=== PATIENT | female | born 1980 | race Caucasian/White ===

== ENCOUNTER 2020-10-24 15:43 | Emergency (ER) | payer OTHER, SELFPAY ==
[2020-10-24 16:06] VITALS: BP 122/70; PULSE 95; RESP 16; TEMP 36.2; O2SAT 98; BMI 27.4
--- NOTE | 2020-10-24 16:44 | ED.GENADULT ---
HPI - General Adult General Chief complaint: General Medical Stated complaint: STD CHECK Time Seen by Provider: 10/24/20 16:44 History of Present Illness HPI narrative: Patient complains of STD exposure, her boyfriend has gonorrhea and has had a discharge and now she is worried she has it and she is also complaining of vaginal discharge with no pelvic pain no abdominal pain no fever Related Data Previous Rx's Medication Instructions Recorded doxycycline hyclate 100 mg capsule 100 mg PO BID 7 Days #14 cap 10/24/20 metronidazole 500 mg tablet 500 mg PO Q12H 7 Days #14 tab 10/24/20 (Flagyl) Allergies Allergy/AdvReac Type Severity Reaction Status Date / Time No Known Allergies Allergy Unverified 11/21/19 16:25 Review of Systems Review of Systems: Positive for STDs exposure and vaginal discharge Negatives are no fever no chills no dizziness no weakness no headache no neck pain no chest pain no shortness of breath no abdominal pain no pelvic pain no regular vaginal bleeding no dysuria no frequency no skin rash no lesions Yes all other systems are reviewed and are negative PMFSH Past Medical History Source: nursing notes reviewed Social History Social History Advance Directives: No Advance Directives Information Provided: No Physical Exam Vital Signs: Vital Signs: Last Vital Signs Temp 97.1 F 10/24/20 16:06 Pulse 95 10/24/20 16:06 Resp 16 10/24/20 16:06 BP 122/70 10/24/20 16:06 Pulse Ox 98 10/24/20 16:06 Body Mass Index 27.4 General appearance no acute distress Head is normocephalic atraumatic Neck is supple Respiratory no distress Abdomen soft nontender Back no CVA tenderness Extremities full range of motion x4 Course Course Course Narrative: Patient is treated for possible gonorrhea or chlamydia, is advised to follow with [facility] for further examination She self swab bacterial vaginosis and was tested for gonorrhea chlamydia and well-appearing patient was discharged Medical Decision Making Lab Data Labs: Lab Results 10/24/20 10/24/20 Range/Units 17:52 17:52 Jessie species DNA Negative (Negative) Chlam trachomat DNA PCR NOT DETECTED (Not Detect.) Gardnerella DNA Probe Positive A (Negative) N.gonorrhoeae DNA (PCR) DETECTED A (Not Detect.) Trichomonas DNA Probe Negative (Negative) Discharge Plan Discharge Clinical Impression: Gonorrhea Patient Disposition: Home, Self-Care Additional Instructions: We are treating for both gonorrhea and chlamydia We gave a shot of Rocephin for gonorrhea in the emergency department We are also treating with doxycycline for chlamydia and Flagyl for probable bacterial vaginosis [facility] and to confirm treatment has work No sexual activity until partner and herself are both treated and confirmed cured Prescriptions: New metronidazole [Flagyl] 500 mg tablet 500 mg PO Q12H 7 Days Qty: 14 RF: 0 doxycycline hyclate 100 mg capsule 100 mg PO BID 7 Days Qty: 14 RF: 0 Interventions: ED Discharge Assessment Last Done: 10/24/20 18:06 Discharge Date/Time: 10/24/20 18:07
[2020-10-24] MEDS: Azithromycin 500 MG TABLET 1000 MG PO (17:42)
[2020-10-24] MEDS: cefTRIAXone sodium 500 MG, Lidocaine HCl 1 % MPF 1 ML IM (17:42)
[2020-10-25 03:07] LABS: CT PCR NOT DETECTED (Not Detect.); NG PCR DETECTED (Not Detect.)
[2020-10-25 11:59] LABS: BV Int Neg Control Negative (Negative); BV Int Pos Control Positive (Positive)
== END 2020-10-24 18:07 | disposition home or self-care (01) ==
PROVIDERS: Physician Assistant Medical; Emergency Provider Internal Medicine
DX: A54.02 Gonococcal vulvovaginitis, unspecified (principal); Z11.3 Encounter for screening for infections with a predominantly sexual mode of transmission
CPT/HCPCS: 87480; 87491; 87510; 87591; 87660; 96372; 99283; 99284; J0696

== ENCOUNTER 2021-02-20 14:01 | Emergency (ER) | payer OTHER, SELFPAY | END 2021-02-20 14:41 | disposition left against medical advice (07) | PROVIDERS: Emergency Provider Emergency Medicine | DX: T50.901A Poisoning by unspecified drugs, medicaments and biological substances, accidental (unintentional), initial encounter (principal); Y92.9 Unspecified place or not applicable ==

== ENCOUNTER 2021-02-20 15:12 | Emergency (ER) | payer OTHER, SELFPAY | END 2021-02-20 16:14 | disposition left against medical advice (07) | LOC: HO.ED 16:09 | PROVIDERS: Emergency Provider Emergency Medicine | DX: R68.89 Other general symptoms and signs (principal) ==

== ENCOUNTER 2021-02-20 16:26 | Emergency (ER) | payer OTHER, SELFPAY ==
[2021-02-20 16:53] VITALS: BP 150/81; PULSE 68; RESP 18; O2SAT 100; BMI 30.6
--- NOTE | 2021-02-20 16:57 | ED.GENADULT ---
HPI - General Adult General Chief complaint: General Medical Stated complaint: Crisis Time Seen by Provider: 02/20/21 16:47 Source: EMS Mode of arrival: EMS Limitations: altered mental status History of Present Illness HPI narrative: Patient is brought to the emergency room by EMS. Per EMS report, seems that the patient was here in the emergency room earlier today. Patient was in the waiting room, acting erratic, trying to break into the ED, patient was combative, seems that security called PD. Prior toPD arriving, seems that the patient when out in the parking lot and threw herself in some puddles, then PD pick her up. For unclear reason, patient was sent back to the emergency room under a [employer] by police department. So far there is no report of any suicidal or homicidal ideation. Patient is awake but very somnolent, unable to give any history. Patient had fecal incontinence. Related Data Previous Rx's Medication Instructions Recorded doxycycline hyclate 100 mg capsule 100 mg PO BID 7 Days #14 cap 10/24/20 metronidazole 500 mg tablet 500 mg PO Q12H 7 Days #14 tab 10/24/20 (Flagyl) Allergies Allergy/AdvReac Type Severity Reaction Status Date / Time No Known Allergies Allergy Unverified 11/21/19 16:25 Review of Systems Review of Systems: Yes Unobtainable due to mental condition PMFSH Past Medical History Medical History Substance abuse Social History Social History Advance Directives: No Advance Directives Information Provided: No Physical Exam Vital Signs: Vital Signs: Last Vital Signs Temp 97.9 F 02/20/21 18:20 Pulse 68 02/20/21 16:53 Resp 18 02/20/21 16:53 BP 150/81 H 02/20/21 16:53 Pulse Ox 100 02/20/21 16:53 BMI result Body Mass Index 30.6 Const: Other: Appearance: No acute distress, somnolent, easily arousable, seems confused, states I have to pee Eyes: Pupils equal, round and reactive to light. ENT: Pharynx normal. Neck: Normal inspection. Neck supple. No lymph nodes noted. No crepitus CVS: Normal heart rate and rhythm. Pulses normal. Normal S1 and S2 Respiratory: No respiratory distress. Breath sounds normal. No Wheezing. No rales Abdomen: Soft and nontender. No rigidity. No distention. Skin: Skin warm and dry. Normal skin color. Normal skin turgor. Extremities: No lower extremity edema. No Lacerations. No Rash Neuro: Oriented X 3. No motor deficit. No sensory deficit. Moving all extermities. No slurred speech. Cranial nerves 2-12 grossly intact, patient able to walk, walk from her room to the bathroom Psych: Not answering questions, call, otherwise trying to be cooperative Course Course Course Narrative: Patient is still intoxicated, urinalysis pending. Vitals stable. Patient will stay in the ED and metabolize to [facility]. Physician observation started 17:19 0, patient is awake and alert and oriented x3. No acute distress. Patient is calm, cooperative, ambulatory with steady gait. Patient denies suicidal or homicidal ideation. Patient declined help from the care team/recovery coaches. Medical Decision Making Lab Data Labs: Lab Results 02/20/21 02/20/21 02/20/21 Range/Units 17:17 17:25 17:25 Urine Color YELLOW Urine Appearance CLOUDY Urine pH 6.0 (5.0-8.0) Ur Specific [place] 1.020 (1.005-1.025) Urine Protein NEG (NEG-TRACE) MG/DL Urine Glucose (UA) NEG (NEG) MG/DL Urine Ketones 15 (NEG) MG/DL Urine Blood TRACE (NEG) Urine Nitrite NEG (NEG) Ur Leukocyte Esterase NEG (NEG) Urine RBC 1-4 (0) /HPF Urine WBC 0-2 (0-4) /HPF Ur Squamous Epith Cells 1+ /LPF Urine Bacteria 1+ /LPF Urine Mucus TRACE /LPF Urine Test NEGATIVE (NEGATIVE) Urine Opiates Screen Not Detected (Not Detect) Urine Fentanyl Screen POSITIVE H (Not Detect) Ur Barbiturates Screen Not Detected (Not Detect) Ur Phencyclidine Scrn Not Detected (Not Detect) Ur Amphetamines Screen Not Detected (Not Detect) U Benzodiazepines Scrn Not Detected (Not Detect) Urine Cocaine Screen POSITIVE H (Not Detect) U Marijuana (THC) Screen Not Detected (Not Detect) Discharge Plan Discharge Clinical Impression: Polysubstance abuse Patient Disposition: Home, Self-Care Instructions: Polysubstance Abuse (ED) Additional Instructions: Please follow-up with your primary care physician tomorrow. If you have any worsening or new symptoms, please return to the emergency room or call 911 Prescriptions: No Action metronidazole [Flagyl] 500 mg tablet 500 mg PO Q12H 7 Days Qty: 14 RF: 0 doxycycline hyclate 100 mg capsule 100 mg PO BID 7 Days Qty: 14 RF: 0
--- NOTE | 2021-02-20 16:58 | PC.NURSE ---
Pt changed for stool incontinence upon arrival, belongings in decon, feels cool to touch, will obtain rectal temp
[2021-02-20 17:46] LABS: Appearance Urine CLOUDY; Color Urine YELLOW; Glucose Urine UA NEG (NEG); Leukocyte Esterase Urine NEG (NEG); Nitrite Urine NEG (NEG); UACC Culture Trigger NO; Urine Blood TRACE (NEG); Urine Ketones 15 MG/DL (NEG); Urine Protein NEG (NEG-TRACE)
[2021-02-20 17:49] LABS: Amphetamine Screen Urine Not Detected (Not Detect); Barbiturates, Urine Not Detected (Not Detect); Benzodiazepines Screen Urine Not Detected (Not Detect); Cannabinoid Screen Urine Not Detected (Not Detect); Cocaine Screen Urine POSITIVE (Not Detect); Fentanyl, urine POSITIVE (Not Detect); Opiate Screen Urine Not Detected (Not Detect); Phencyclidine Screen Urine Not Detected (Not Detect); UPreg QC Valid YES; Urine Pregnancy NEGATIVE (NEGATIVE)
[2021-02-20 18:01] LABS: WBC Urine 0-2 /HPF (0-4)
[2021-02-20 18:02] LABS: Bacteria Urine 1+ /LPF; Mucus Urine TRACE /LPF; Squamous Epithelial Cell Urine 1+ /LPF
[2021-02-20 18:20] VITALS: TEMP 36.6
--- NOTE | 2021-02-20 18:20 | PC.NURSE ---
Pt asleep, awakes easily to verbal stimuli, ambulatory to bathroom and able to follow simple commands. vss
--- NOTE | 2021-02-20 19:35 | PC.NURSE ---
PT DENIES SUICIDAL/HOMICIDAL IDEATION, PT UP AND AMBULATES AROUND ED WITH STEADY EVEN GAIT AND STATES IM VERY BUSY AND NEED TO GO HOME, YOU PEOPLE DON'T UNDERSTAND . PT SPEAKING IN FULL COMPLETE SENTENCES. MD AWARE AND PT AWAITING FOR D/C INSTRUCTIONS.
[2021-02-20 19:45] VITALS: BP 138/68; PULSE 68; RESP 16; O2SAT 98
== END 2021-02-20 19:47 | disposition home or self-care (01) ==
PROVIDERS: Emergency Provider Emergency Medicine
DX: F19.10 Other psychoactive substance abuse, uncomplicated (principal)
CPT/HCPCS: 80307; 81001; 81025; 99283; 99284

== ENCOUNTER 2022-02-26 08:54 | Emergency (ER) | payer OTHER, SELFPAY ==
[2022-02-26 08:58] VITALS: BP 128/64; PULSE 100; RESP 18; TEMP 36.8; O2SAT 100; BMI 30.2
--- NOTE | 2022-02-26 09:29 | PC.NURSE ---
Pt slumped over in seat in [facility] after ambulating to bathroom. Rousable to touch. RR 10, Skin p/w/d.
--- NOTE | 2022-02-26 09:48 | PC.NURSE ---
patient a/ox4 . pearrla , with bilateral periorbital edema noted . heart rate regular at 99 b eats per minute . breathing even and unlabored . lungs clear throughout . bilateral various rashes and and scratches and scabs noted from heroine use as [id number] by patient in arms . bilateral below the knees have various rashes and scratches from irritation associated from reaction also various scabs in lower extremities from popping and heroine use . abdomen is soft , positive bowel sounds . patient is aware of plan of care .
--- NOTE | 2022-02-26 09:48 | ED.ALLEREA ---
HPI - Allergic Reaction General Chief complaint: Allergic Reaction Stated complaint: facial swelling Time Seen by Provider: 02/26/22 09:33 Source: patient Mode of arrival: ambulatory Limitations: no limitations History of Present Illness HPI narrative: 41-year-old female with a history of polysubstance use, mood disorder, ADHD presents with complaints of itching rash all over her body with some swelling to her face for the last few days. Patient unaware of any new medications, products, detergents, foods. Patient reports no cough, difficulty breathing, difficulty swallowing, abdominal pain, vomiting or diarrhea. Patient is currently using IV heroin daily. She also skin pops. she is currently in a program. She is not interested in any additional substance related resources Related Data Previous Rx's Medication Instructions Recorded doxycycline hyclate 100 mg capsule 100 mg PO BID 7 days #14 caps 10/24/20 metronidazole 500 mg tablet 500 mg PO Q12H 7 days #14 tabs 10/24/20 (Flagyl) hydrocortisone 2.5 % topical 1 appl topical TID PRN itching 02/26/22 ointment #28.35 grams hydroxyzine HCl 25 mg tablet 25 mg PO TID PRN itching #20 tabs 02/26/22 prednisone 20 mg tablet 60 mg PO DAILY #12 tabs 02/26/22 Allergies Allergy/AdvReac Type Severity Reaction Status Date / Time No Known Allergies Allergy Unverified 11/21/19 16:25 Review of Systems Review of Systems: Yes all other systems are reviewed and are negative Constitutional: Constitutional: Reports no additional constitutional complaints, Denies body ache(s), Denies chills, Denies fever(s), Denies headache(s) and Denies weakness Eyes: Eyes: Reports no additional eye complaints and Denies change in vision ENT: Reports system reviewed and no additional complaints, except as documented, Denies dizziness, Denies headache(s), Denies nasal congestion, Denies nasal discharge and Denies neck pain Cardiovascular: Cardiovascular: Reports no additional cardiovascular complaints, Denies chest pain, Denies leg edema and Denies dyspnea Respiratory: Respiratory: Reports no additional respiratory complaints, Denies cough and Denies dyspnea Gastrointestinal: Gastrointestinal: Reports no additional gastrointestinal complaints, Denies abdominal pain, Denies diarrhea, Denies nausea and Denies vomiting Genitourinary: Genitourinary: Reports no additional female genitourinary complaints and Denies urinary incontinence Musculoskeletal: Musculoskeletal: Reports no additional musculoskeletal complaints, Denies back pain, Denies arthralgias, Denies joint swelling, Denies neck pain, Denies numbness and Denies tingling Integumentary/Breasts: Skin/Breast: Reports system reviewed and no additional complaints, except as docu and Reports rash Neurologic: Reports system reviewed and no additional complaints, except as documented, Denies dizziness, Denies headache(s), Denies numbness, Denies tingling and Denies weakness PMFSH Past Medical History Attestation statement: The following information was validated with the patient. Source: old records reviewed and nursing notes reviewed Medical History Substance abuse Social History Social History Smoked in Last 30 Days: Yes Substance Use Type: Heroin Advance Directives: No Advance Directives Information Provided: Yes Patient : No Physical Exam ED Vital Signs: Vital Signs - 24 hr 02/26/22 08:58 Temperature 98.2 F Pulse Rate 100 Respiratory Rate 18 Blood Pressure 128/64 Pulse Oximetry 100 Oxygen Delivery Method Room Air BMI result Body Mass Index 30.2 Const General: cooperative, healthy appearing, comfortable and no acute distress Orientation/consciousness: patient oriented x3 Limitations: no limitations HENMT Other: there is slight bilateral periorbital swelling. There is no swelling noted to the tongue, lips or mouth. The uvula is midline. No upper airway stridor. Patient is tolerating secretions with no difficulty. Head: Yes normal to inspection Ears: hearing grossly normal bilaterally and TM's normal bilaterally General nose exam: Normal external nose present Mouth: Normal oral and palatal mucosa present, lip normal and tongue normal Throat: Yes posterior oropharynx normal, Yes tonsils normal and Yes uvula midline Eyes Pupils: Equal, round and reactive pupils present EOM: EOMs intact bilaterally Neck Neck: Yes normal visual inspection, Yes full ROM, Yes no lymphadenopathy and Yes no meningeal signs Chest Chest palpation & inspection: normal inspection of the chest Resp Effort & Inspection: normal respiratory effort Auscultation: clear to auscultation bilaterally Cardio Rate: regular rate Rhythm: regular rhythm Peripheral pulses: Peripheral pulses 2+ throughout Back/Spine/Pelvis Thoracic/Lumbar Spine: thoracic and lumbar spine normal to inspection Skin Other: There is a slight urticarial rash noted over the lower and upper extremities. There is also various abrasions noted in linear fashion over the upper extremities. Over the lower legs there are multiple lesions with central areas of crusting and scabbing which patient remarks are from skin popping Neuro General: patient oriented x3, moves all extremities and no meningeal signs Cranial nerves: Yes Equal, round and reactive pupils present Cognition (Neuro): normal cognition Gait exam (Neuro): Normal gait present Medical Decision Making Medical Decision Making MDM Narrative: this is a 41-year-old female who presents with several days of itching rash and some facial swelling with no known exposure. exam is consistent with generalized allergic reaction. no airway involvement or angioedema. slight periorbital swelling. EOM is intact. PERRLA. Patient has no for mouth, lip, tongue swelling or difficulties with airway. No signs of superimposed cellulitis Patient given prednisone while in the emergency room as well as hydroxyzine as her biggest complaint is itching. will send home with prednisone for several days, hydroxyzine p.r.n. and hydrocortisone cream. Patient offered substance related resources but she declined these. Differential Diagnosis Differential Diagnoses: The differential diagnosis associated with the presentation includes Generalized allergic reaction, superimposed cellulitis Admission/Observation no airway involvement to suggest need for IV medications, additional resources and/or possible admission Social Determinants polysubstance abuse including IV heroin. states currently in a program. Denies additional need for resources. Patient reports she is able to get to the pharmacy to bulk picker her medications. Discharge Plan Discharge Clinical Impression: Allergic reaction Patient Disposition: Home, Self-Care Instructions: General Allergic Reaction (ED) Additional Instructions: start prednisone tomorrow Use the hydroxyzine for itching as needed and you may apply the topical cream to your body but do not apply it to your face tried be mindful of any new medications or products that you might be using may be triggering these symptoms. Try to use sensitive soaps and Free and Clear laundry detergents for the next few days return for worsening symptoms Prescriptions: New prednisone 20 mg tablet 60 mg PO DAILY Qty: 12 0RF hydroxyzine HCl 25 mg tablet 25 mg PO TID PRN (Reason: itching) Qty: 20 0RF hydrocortisone 2.5 % ointment 1 appl topical TID PRN (Reason: itching) Qty: 28.35 0RF No Action metronidazole [Flagyl] 500 mg tablet 500 mg PO Q12H 7 Days Qty: 14 0RF doxycycline hyclate 100 mg capsule 100 mg PO BID 7 Days Qty: 14 0RF Referrals: Physician,Unknown J [Primary Care Provider] - 1 week
[2022-02-26 10:17] VITALS: BP 128/78; PULSE 99; RESP 18; TEMP 36.7; O2SAT 98
--- NOTE | 2022-02-26 10:18 | PC.NURSE ---
Patient a/ox4 . VSS . Went over discharge instructions as ordered by provider . patient to follow up with primary care . patient to return to Ed if symptoms worsen . no questions at this time .
== END 2022-02-26 10:20 | disposition home or self-care (01) ==
PROVIDERS: Emergency Provider Student in an Organized Health Care Education/Training Program
DX: T78.40XA Allergy, unspecified, initial encounter (principal); R21 Rash and other nonspecific skin eruption; X58.XXXA Exposure to other specified factors, initial encounter; F19.10 Other psychoactive substance abuse, uncomplicated
CPT/HCPCS: 99283; 99284

== ENCOUNTER 2022-05-25 11:29 | Emergency (ER) | payer OTHER, SELFPAY ==
[2022-05-25 11:38] VITALS: BP 119/75; PULSE 80; RESP 16; TEMP 36.6; O2SAT 97; BMI 28.3
--- NOTE | 2022-05-25 11:39 | ED.GENADULT ---
HPI - General Adult General Chief complaint: Skin/Abscess/Foreign Body Stated complaint: skin flesh wound Related Data Previous Rx's Medication Instructions Recorded doxycycline hyclate 100 mg capsule 100 mg PO BID 7 days #14 caps 10/24/20 metronidazole 500 mg tablet 500 mg PO Q12H 7 days #14 tabs 10/24/20 (Flagyl) hydrocortisone 2.5 % topical 1 appl topical TID PRN itching 02/26/22 ointment #28.35 grams hydroxyzine HCl 25 mg tablet 25 mg PO TID PRN itching #20 tabs 02/26/22 prednisone 20 mg tablet 60 mg PO DAILY #12 tabs 02/26/22 Allergies Allergy/AdvReac Type Severity Reaction Status Date / Time ziprasidone [From Geodon] AdvReac Unknown Verified 05/25/22 11:37 PMFSH Past Medical History Medical History Substance abuse Social History Social History Substance Use Type: Heroin Advance Directives: No Physical Exam ED Vital Signs: BMI result Body Mass Index 28.3 Course Course Course Narrative: 41 year old female presents for evaluation on healing wounds to arms and legs. Plan for labs and inflammatory markers. Discharge Plan Discharge Clinical Impression: Wounds, multiple open, arm Patient Disposition: Elopement Prescriptions: No Action metronidazole [Flagyl] 500 mg tablet 500 mg PO Q12H 7 Days Qty: 14 0RF doxycycline hyclate 100 mg capsule 100 mg PO BID 7 Days Qty: 14 0RF prednisone 20 mg tablet 60 mg PO DAILY Qty: 12 0RF hydroxyzine HCl 25 mg tablet 25 mg PO TID PRN (Reason: itching) Qty: 20 0RF hydrocortisone 2.5 % ointment 1 appl topical TID PRN (Reason: itching) Qty: 28.35 0RF Interventions: ED Discharge Assessment Last Done: 05/25/22 15:21 Discharge Date/Time: 05/25/22 15:21
== END 2022-05-25 15:21 | disposition left against medical advice (07) ==
PROVIDERS: Emergency Provider Emergency Medicine
DX: S81.802D Unspecified open wound, left lower leg, subsequent encounter (principal); S81.801D Unspecified open wound, right lower leg, subsequent encounter; S41.102D Unspecified open wound of left upper arm, subsequent encounter; S41.101D Unspecified open wound of right upper arm, subsequent encounter; X58.XXXD Exposure to other specified factors, subsequent encounter; F19.10 Other psychoactive substance abuse, uncomplicated
CPT/HCPCS: 99281; 99282

== ENCOUNTER 2022-05-27 05:51 | Emergency (ER) | payer OTHER, SELFPAY | END 2022-05-27 06:30 | disposition left against medical advice (07) | PROVIDERS: Emergency Provider Emergency Medicine | DX: R21 Rash and other nonspecific skin eruption (principal) ==

== ENCOUNTER 2023-07-08 18:45 | Emergency (ER) | payer OTHER, SELFPAY ==
--- NOTE | 2023-07-08 20:15 | PC.NURSE ---
Pt checked in as a patient at 1845. She was the only person in the [facility] at this time, there was no wait to be triaged. After checking in, she left the ED and did not return.
== END 2023-07-08 20:00 | disposition left against medical advice (07) ==
LOC: HO.ED 20:00
PROVIDERS: Emergency Provider Emergency Medicine
DX: Z53.21 Procedure and treatment not carried out due to patient leaving prior to being seen by health care provider (principal); N39.0 Urinary tract infection, site not specified

== ENCOUNTER 2023-08-06 22:05 | Emergency (ER) | payer OTHER, SELFPAY | END 2023-08-06 22:58 | disposition left against medical advice (07) | LOC: HO.ED 22:58 | PROVIDERS: Emergency Provider Emergency Medicine | DX: Z53.21 Procedure and treatment not carried out due to patient leaving prior to being seen by health care provider (principal) ==

== ENCOUNTER 2023-08-14 12:37 | Emergency (ER) | payer OTHER, SELFPAY | END 2023-08-14 14:57 | disposition left against medical advice (07) | PROVIDERS: Emergency Provider Emergency Medicine | DX: Z53.21 Procedure and treatment not carried out due to patient leaving prior to being seen by health care provider (principal); R21 Rash and other nonspecific skin eruption ==

== ENCOUNTER 2023-08-15 07:54 | Emergency (ER) | payer OTHER, SELFPAY ==
[2023-08-15 08:11] VITALS: BP 115/77; PULSE 87; RESP 18; TEMP 36.7; O2SAT 98; BMI 30.3
--- NOTE | 2023-08-15 08:38 | ED.GENADULT ---
HPI - General Adult General Chief complaint: General Medical Stated complaint: skin infection Time Seen by Provider: 08/15/23 08:38 Source: patient Mode of arrival: ambulatory Limitations: no limitations History of Present Illness ED Provider: Charlotte Livingston PA-C HPI narrative: 41-year-old female with a history of polysubstance use on methadone, continuing to use IV drugs, hx mood disorder, ADHD who presents to the ER for evaluation of nonhealing wounds on the bilateral forearms, right greater than left for the last 4 months. Patient admits to injecting around the wounds with worsening symptoms. She states they are draining pus, are red and itchy. She denies any fever or chills. She is on methadone 65 mg a day at the clinic in [place] but continues to inject. She is refusing blood work and IV antibiotics today. complaint: Nonhealing, chronic, worsening wounds of the right upper extremity Onset (ago): month(s) Location: left, right and upper extremity Severity: moderate Quality: burning and other (Itching) Relieving factors: none Exacerbating factors: other (IV drug use) Treatments prior to arrival: none Related Data Previous Rx's ?Medication ?Instructions ?Recorded doxycycline hyclate 100 mg capsule 100 mg PO BID 7 days #14 caps 10/24/20 metronidazole 500 mg tablet 500 mg PO Q12H 7 days #14 tabs 10/24/20 (Flagyl) hydrocortisone 2.5 % topical 1 appl topical TID PRN itching 02/26/22 ointment #28.35 grams hydroxyzine HCl 25 mg tablet 25 mg PO TID PRN itching #20 tabs 02/26/22 prednisone 20 mg tablet 60 mg (3 x 20 mg) PO DAILY #12 tabs 02/26/22 cephalexin 500 mg capsule 500 mg PO Q6H 10 days #40 caps 08/15/23 doxycycline hyclate 100 mg tablet 100 mg PO BID #20 tabs 08/15/23 lidocaine 5 % topical ointment 1 appl topical BEDTIME #30 grams 08/15/23 Allergies Allergy/AdvReac Type Severity Reaction Status Date / Time ziprasidone [From Geodon] AdvReac Unknown Verified 08/15/23 08:12 Review of Systems Review of Systems: Yes all other systems are reviewed and are negative PMFSH Past Medical History Medical History Substance abuse Social History Social History (System 01/09/23 @ 15:09 by Aparna Johnson) Use of substances other than those prescribed or required for medical reasons: Yes Substance Use Type: Crack/Cocaine and Heroin Substance Use Frequency: Chronic Longstanding Last Used Substance: Just Prior to Admission Advance Directives: No Advance Directives Information Provided: No Physical Exam ED Vital Signs: Vital Signs - 24 hr 08/15/23 08:11 08/15/23 09:04 Temperature 98.0 F 98.0 F Pulse Rate 87 87 Respiratory Rate 18 18 Blood Pressure 115/77 115/77 Pulse Oximetry 98 98 Oxygen Delivery Method Room Air Room Air BMI result Body Mass Index 30.3 Appearance: Alert. Oriented X3. Disheveled, poorly kept HEENT: normal external inspection Neck: Normal inspection. Neck supple. CVS: Normal heart rate and rhythm. Pulses normal. Respiratory: No respiratory distress. Breath sounds normal. Skin: Skin warm and dry. There are multiple nonhealing, crater like wounds on the dorsal aspect of the right forearm, involving most of the forearm with surrounding erythema, warmth, induration. No fluctuance. Wounds are proximally 2-3 mm deep with yellow discoloration and surrounding erythema. Neurovascularly intact distally. Extremities: No lower extremity edema. No joint swelling. Neuro/psych: Oriented X 3. Grossly normal, nonfocal, tearful. Normal speech and cognition. Medical Decision Making Medical Decision Making MDM Narrative: 42-year-old female presenting to the ER for evaluation of acute on chronic wounds to her right upper extremities, right worried than left. She continues to inject drugs there. She is declining blood work today, IV antibiotics. She would like oral antibiotics and to be discharged. She understands the importance of not injecting into the wounds and that this is what is causing them. She is going to talk to her methadone clinic about dose adjustments. Patient is afebrile, not tachycardic. Will prescribe Keflex and doxycycline. Importance of compliance and abstinence from drugs discussed with the patient and she expressed understanding. Strict return precautions were discussed. Wound Clinic information provided. Stable for discharge Differential Diagnosis Differential Diagnoses: The differential diagnosis associated with the presentation includes Cellulitis, abscess, MRSA infection, xylazine wounds Admission/Observation Consideration of admission/observation: Escalation of care including admission/observation considered Patient declining External Record Review External record reviewed: Prior outpatient labs Tests considered The following testing was considered but not selected: Lab workup and blood cultures considered however patient is refusing at this time Prescription Management I considered prescription management with: Pain Medication and Antibiotic Social Determinants Patient?s care significantly limited by Social Determinants of Health including: Problems related to primary support group and Other Social Determinant of Health Critical Care Time Critical Care Time Critical Care Time: No Discharge Plan Discharge Clinical Impression: Wounds, multiple open, arm Qualifiers: Encounter type: initial encounter Laterality: right Qualified Code(s): S41.101A - Unspecified open wound of right upper arm, initial encounter Patient Disposition: Home, Self-Care Instructions: Wound Infection (DC), Acute Wounds (DC) Additional Instructions: Take the prescribed antibiotics as directed, complete the entire course and do not miss any doses These wounds will not get better unless you stop injecting drugs. Go to the Wound Clinic for further management, they can help monitor wound healing and give you other possible therapies. If you develop new or worsening symptoms call 911 or come back to the ER for further evaluation. Prescriptions: New doxycycline hyclate 100 mg tablet 100 mg PO BID Qty: 20 0RF cephalexin 500 mg capsule 500 mg PO Q6H 10 Days Qty: 40 0RF lidocaine 5 % ointment 1 appl topical BEDTIME Qty: 30 0RF No Action metronidazole [Flagyl] 500 mg tablet 500 mg PO Q12H 7 Days Qty: 14 0RF doxycycline hyclate 100 mg capsule 100 mg PO BID 7 Days Qty: 14 0RF prednisone 20 mg tablet 60 mg PO DAILY Qty: 12 0RF hydroxyzine HCl 25 mg tablet 25 mg PO TID PRN (Reason: itching) Qty: 20 0RF hydrocortisone 2.5 % ointment 1 appl topical TID PRN (Reason: itching) Qty: 28.35 0RF Referrals: [facility] [place] [facility] [place] [Provider Group] Interventions: ED Discharge Assessment Last Done: 08/15/23 09:04 Discharge Date/Time: 08/15/23 09:05 Print Language: Kinyarwanda
--- NOTE | 2023-08-15 09:01 | PC.NURSE ---
This RN went into patient room, pt has been refusing labs/IV, pt stating I just want PO antibiotics so I can go home, I have to much going on right now Pt has bilat forearm wounds, pt does admit to injecting into wounds. reporting pain/itching. Denies fevers. Provider made aware. Pt also has vape in room, secuirty made aware of smoking in room. Pt d/c with PO antibiotics and follow up with wound clinic.
[2023-08-15 09:04] VITALS: BP 115/77; PULSE 87; RESP 18; TEMP 36.7; O2SAT 98
== END 2023-08-15 09:05 | disposition home or self-care (01) ==
PROVIDERS: Emergency Provider Emergency Medicine; PCP Student in an Organized Health Care Education/Training Program
DX: S41.101A Unspecified open wound of right upper arm, initial encounter (principal); F14.10 Cocaine abuse, uncomplicated; F11.10 Opioid abuse, uncomplicated; Y28.9XXA Contact with unspecified sharp object, undetermined intent, initial encounter; Y93.9 Activity, unspecified; Y92.9 Unspecified place or not applicable; Y99.8 Other external cause status
CPT/HCPCS: 99283

== ENCOUNTER 2023-09-26 10:01 | Emergency (ER) | payer OTHER, SELFPAY ==
[2023-09-26 10:17] VITALS: BP 124/70; PULSE 89; RESP 18; TEMP 36.8; O2SAT 96; BMI 29.7
--- NOTE | 2023-09-26 12:58 | MHC.EDTECH ---
Difficult draw. Venipuncture x1 for 1st set of bc and labs. Counted 30 drops in each culture.
[2023-09-26 13:00] LABS: MANUAL DIFF FLAG NO
[2023-09-26 13:02] LABS: Basophils Percent Auto 0.4 % (0-2); Eosinophils Absolute Auto 0.2 X10*3/uL (0.0-0.4); Eosinophils Percent Auto 2.2 % (0-4); Hematocrit 32.6 % (37.0-47.0); Imm Gran Abs Auto 0.04 X10*3/uL (0.00-0.03); Imm Gran Pct Auto 0.6 % (0.0-0.4); Lymphocytes Absolute Auto 1.7 X10*3/uL (1.2-4.9); Lymphocytes Percent Auto 24.6 % (20-40); Mean Corpuscular HGB Conc 30.7 g/dl (31.0-35.0); Mean Corpuscular Hemoglobin 24.5 pg (27.0-33.0); Mean Corpuscular Volume 79.9 fL (80.0-98.0); Mean Platelet Volume 8.8 fL (9.4-12.3); Monocytes Absolute Auto 0.3 X10*3/uL (0.1-1.2); Monocytes Percent Auto 4.9 % (2-11); Neutrophils Absolute Auto 4.5 x10*3/uL (2.0-8.3); Neutrophils Percent Auto 67.3 % (45-73); Platelet Count 348 X10*3/uL (160-400); Red Blood Count 4.08 X10*6/uL (4.20-5.50); Red Cell Distribution Width 13.3 % (11.0-16.0); White Blood Count 6.8 X10*3/uL (4.8-10.8)
--- NOTE | 2023-09-26 13:08 | ED.SKABFB ---
HPI - Skin/Abscess/Foreign Bdy General Chief complaint: Skin/Abscess/Foreign Body Stated complaint: Cellulitis Time Seen by Provider: 09/26/23 13:05 History of Present Illness ED Provider: Dr. Andrew Anderson HPI narrative: 41-year-old female with a history of polysubstance use on methadone, continuing to use IV drugs, hx mood disorder, ADHD who presents to the ER for evaluation of nonhealing wounds on the bilateral forearms, right greater than left for the last 4-5 months. Patient was seen in the emergency department on 08/15/2019 for similar complaint. She was diagnosed with cellulitis in treated with 08/15/23 and she was treated with doxycycline and cephalexin times 10 days with no improvement of her symptoms. She continues to use injection drugs. She denied fever, chills, fatigue, chest pain or shortness of breath. Related Data Previous Rx's ?Medication ?Instructions ?Recorded doxycycline hyclate 100 mg capsule 100 mg PO BID 7 days #14 caps 10/24/20 metronidazole 500 mg tablet 500 mg PO Q12H 7 days #14 tabs 10/24/20 (Flagyl) hydrocortisone 2.5 % topical 1 appl topical TID PRN itching 02/26/22 ointment #28.35 grams hydroxyzine HCl 25 mg tablet 25 mg PO TID PRN itching #20 tabs 02/26/22 prednisone 20 mg tablet 60 mg (3 x 20 mg) PO DAILY #12 tabs 02/26/22 cephalexin 500 mg capsule 500 mg PO Q6H 10 days #40 caps 08/15/23 doxycycline hyclate 100 mg tablet 100 mg PO BID #20 tabs 08/15/23 lidocaine 5 % topical ointment 1 appl topical BEDTIME #30 grams 08/15/23 clindamycin HCl 300 mg capsule 600 mg (2 x 300 mg) PO Q8H 7 days 09/26/23 #42 caps Allergies Allergy/AdvReac Type Severity Reaction Status Date / Time ziprasidone [From Geodon] AdvReac Unknown Verified 09/26/23 10:21 Review of Systems Review of Systems: Yes all other systems are reviewed and are negative PMFSH Past Medical History Medical History Substance abuse Social History Social History (System 01/09/23 @ 15:09 by Aparna Johnson) Smoked in Last 30 Days: No Use of substances other than those prescribed or required for medical reasons: Yes Substance Use Type: Crack/Cocaine, Heroin and IV Drugs Substance Use Frequency: Chronic Longstanding Advance Directives: No Advance Directives Information Provided: Yes Do you have a plan to hurt others: No Plan Physical Exam Vital Signs: Vital Signs: Last Vital Signs Temp 97.7 F 09/26/23 13:09 Pulse 65 09/26/23 13:09 Resp 16 09/26/23 13:09 BP 99/65 09/26/23 13:09 Pulse Ox 100 09/26/23 13:09 O2 Del Method Room Air 09/26/23 13:09 BMI result Body Mass Index 29.7 Initial vital signs were normal Exam: General: Awake, alert in no distress Extremities: Soft tissue swelling of the right forearm with chronic, non healing skin ulcer with surrounding erythema and increased warmth. Patient also has erythema and soft tissue swelling of her right hand. Patient has left arm revealed similar nonhealing skin ulcers to the proximal forearm with slight erythema with no increased warmth. Medical Decision Making Medical Decision Making MDM Narrative: 41-year-old female with a history of polysubstance use on methadone, continuing to use IV drugs, hx mood disorder, ADHD who presents to the ER for evaluation of nonhealing wounds on the bilateral forearms, right greater than left for the last 4-5 months. Patient was seen in the emergency department on 08/15/2019 for similar complaint and she was treated with doxycycline and cephalexin times 10 days with no improvement of her symptoms. She continues to use injection drugs. She denied fever, chills, fatigue, chest pain or shortness of breath. Vital signs were normal. Physical examination revealed chronic nonhealing ulcerative wounds to the right forearm and left forearm right greater than left with cellulitis of the right forearm. Differential diagnosis: ?Includes but is not limited to cellulitis, nonhealing wounds, Xylazine exposure, vascular compromise secondary to injection drug use Following evaluation was ordered: CBC, BMP, liver panel, lactic acid Course: 13:48 : My interpretation patient's laboratory evaluation is as follows: WBC was normal 6800. Microcytic anemia with an H&H of 32 and 10.0. Platelet count was normal 348,000. BMP and liver panel were normal. Lactic acid was normal at 1.3. The patient's findings are consistent with a nonhealing skin ulcer possibly secondary to Xylazine exposure which caused skin necrosis verses vascular compromise from repeated injection drug use. The patient does not want to be admitted at this time and wants to try another course of antibiotics. Therefore the patient was prescribed clindamycin 600 mg 3 times a day for 7 days. Patient will also be referred to the wound clinic. Patient was not interested in getting help with your injection drug use disorder. Admission/Observation Consideration of admission/observation: Escalation of care including admission/observation considered Lab Data [facility] Lab Attestation statement: I reviewed the patient's lab results. 09/26/23 12:53 09/26/23 12:53 Labs: Lab Results 09/26/23 09/26/23 Range/Units 12:53 12:54 WBC 6.8 (4.8-10.8) X10*3/uL RBC 4.08 L (4.20-5.50) X10*6/uL Hgb 10.0 L (12.0-16.0) g/dl Hct 32.6 L (37.0-47.0) % MCV 79.9 L (80.0-98.0) fL MCH 24.5 L (27.0-33.0) pg MCHC 30.7 L (31.0-35.0) g/dl RDW 13.3 (11.0-16.0) % Plt Count 348 (160-400) X10*3/uL MPV 8.8 L (9.4-12.3) fL Immature Gran % (Auto) 0.6 H (0.0-0.4) % Neut % (Auto) 67.3 (45-73) % Lymph % (Auto) 24.6 (20-40) % Titus % (Auto) 4.9 (2-11) % Eos % (Auto) 2.2 (0-4) % Baso % (Auto) 0.4 (0-2) % Lymph # (Auto) 1.7 (1.2-4.9) X10*3/uL Titus # (Auto) 0.3 (0.1-1.2) X10*3/uL Eos # (Auto) 0.2 (0.0-0.4) X10*3/uL Baso # (Auto) 0.0 (0.0-0.2) X10*3/uL Abs Immat Gran (auto) 0.04 H (0.00-0.03) X10*3/uL Absolute Neuts (auto) 4.5 (2.0-8.3) x10*3/uL Absolute Nucleated RBC 0.000 (0.0-0.012) X10*3/uL Nucleated RBC % (auto) 0.0 (0.0-0.2) /100WBC Sodium 138 (135-145) mmol/L Potassium 3.9 (3.3-5.1) mmol/L Chloride 103 (96-108) mmol/L Carbon Dioxide 27 (22-29) mmol/L Anion Gap 12 (12-20) BUN 10 (9-16) mg/dL Creatinine 0.89 (0.5-1.4) mg/dL Estim Creat Clear Calc 81.7 Estimated GFR > 60 Random Glucose 85 (60-115) mg/dL Lactic Acid 1.3 (0.5-2.0) mmol/L Calcium 9.3 (8.4-10.2) mg/dL Total Bilirubin 0.2 (0.0-1.0) mg/dL Direct Bilirubin < 0.2 (0.0-0.5) mg/dL AST 22 (5-31) U/L ALT 16 (0-31) U/L Alkaline Phosphatase 96 (39-117) U/L Total Protein 8.6 H (6.5-8.0) g/dL Albumin 3.5 (3.5-5.0) g/dL Prescription Management I considered prescription management with: Antibiotic Chronic Conditions Patient?s care impacted by: Other (Injection drug use) Discharge Plan Discharge Clinical Impression: Cellulitis of arm, left, Cellulitis of arm, right, Nonhealing nonsurgical wound limited to breakdown of skin Patient Disposition: Home, Self-Care Additional Instructions: Your skin wounds may have been caused by exposure to Xylazine which is a drug that is often mixed in with heroin and can cause ulcers of the skin. Take clindamycin 300 mg pills, 2 pills 3 times a day (every 6 hours while awake) for 7 days Apply heating pad on low to your skin to increase the blood flow which will help treat the infection Also try to keep your arms elevated to help the blood drain out of your arms which will also help the infection. Please call the wound care clinic to try to make a follow-up appointment for further evaluation of your nonhealing skin ulcers Follow-up with your doctor in 2 days. Please return to the emergency department if your symptoms get worse or if you develop any symptoms that are concerning to you. Prescriptions: New clindamycin HCl 300 mg capsule 600 mg PO Q8H 7 Days Qty: 42 0RF No Action metronidazole [Flagyl] 500 mg tablet 500 mg PO Q12H 7 Days Qty: 14 0RF doxycycline hyclate 100 mg capsule 100 mg PO BID 7 Days Qty: 14 0RF prednisone 20 mg tablet 60 mg PO DAILY Qty: 12 0RF hydroxyzine HCl 25 mg tablet 25 mg PO TID PRN (Reason: itching) Qty: 20 0RF hydrocortisone 2.5 % ointment 1 appl topical TID PRN (Reason: itching) Qty: 28.35 0RF doxycycline hyclate 100 mg tablet 100 mg PO BID Qty: 20 0RF cephalexin 500 mg capsule 500 mg PO Q6H 10 Days Qty: 40 0RF lidocaine 5 % ointment 1 appl topical BEDTIME Qty: 30 0RF Referrals: [facility] – [place] Wound Care Management [Provider Group] - 1 week (Nonhealing ulcers to forearm secondary to injection drug use, cellulitis) Print Language: Egyptian
[2023-09-26 13:09] VITALS: BP 99/65; PULSE 65; RESP 16; TEMP 36.5; O2SAT 100
[2023-09-26 13:20] LABS: Lactic Acid 1.3 mmol/L (0.5-2.0)
[2023-09-26 13:23] LABS: Alanine Aminotransferase 16 U/L (0-31); Albumin Level 3.5 g/dL (3.5-5.0); Alkaline Phosphatase 96 U/L (39-117); Anion Gap 12 (12-20); Aspartate Amino Transferase 22 U/L (5-31); Bilirubin Direct < 0.2 mg/dL (0.0-0.5); Bilirubin Total 0.2 mg/dL (0.0-1.0); Blood Urea Nitrogen 10 mg/dL (9-16); Calcium 9.3 mg/dL (8.4-10.2); Carbon Dioxide 27 mmol/L (22-29); Chloride 103 mmol/L (96-108); Creatinine Clr Calc Pharmacy 81.7; Estimated Glomerular Filt Rate > 60; Glucose Random 85 mg/dL (60-115); Potassium 3.9 mmol/L (3.3-5.1); Sodium 138 mmol/L (135-145); Total Protein 8.6 g/dL (6.5-8.0)
== END 2023-09-26 13:44 | disposition home or self-care (01) ==
PROVIDERS: Physician Assistant; Emergency Provider Emergency Medicine Emergency Medical Services
DX: L03.114 Cellulitis of left upper limb (principal); L03.113 Cellulitis of right upper limb; S51.801A Unspecified open wound of right forearm, initial encounter; S51.802A Unspecified open wound of left forearm, initial encounter; X58.XXXA Exposure to other specified factors, initial encounter; F19.10 Other psychoactive substance abuse, uncomplicated; F11.20 Opioid dependence, uncomplicated; Y93.89 Activity, other specified; Y92.9 Unspecified place or not applicable; Y99.9 Unspecified external cause status
CPT/HCPCS: 36415; 80048; 80076; 83605; 85025; 87040; 99283

== ENCOUNTER 2024-01-07 04:53 | Emergency (ER) | payer OTHER, SELFPAY ==
[2024-01-07 04:54] VITALS: BP 148/70; PULSE 104; RESP 18; TEMP 36.8; O2SAT 99; BMI 27.4
--- NOTE | 2024-01-07 05:02 | MHC.EDTECH ---
Patient refused blood drawn ,walk out and went out side ,[place] and elevator examiner Kelly aware .
--- NOTE | 2024-01-07 05:18 | ED_ITS ---
HPI - Wound/Laceration General Chief Complaint: Wound/Laceration Stated Complaint: open wound Time Seen by Provider: 01/07/24 05:11 Source: patient Mode of arrival: ambulatory Limitations: no limitations History of Present Illness ED Provider: jessi NEWBY narrative: Patient IVDA cocaine heroin user comes here was nonhealing wound of the right forearm which is going on for last several months no fever no significant increase in swelling no significant pus discharge has a chronic granulation tissues with purulent base patient does shoot in the same wound Related Data Previous Rx's ?Medication ?Instructions ?Recorded doxycycline hyclate 100 mg capsule 100 mg PO BID 7 days #14 caps 10/24/20 metronidazole 500 mg tablet 500 mg PO Q12H 7 days #14 tabs 10/24/20 (Flagyl) hydrocortisone 2.5 % topical 1 appl topical TID PRN itching 02/26/22 ointment #28.35 grams hydroxyzine HCl 25 mg tablet 25 mg PO TID PRN itching #20 tabs 02/26/22 prednisone 20 mg tablet 60 mg (3 x 20 mg) PO DAILY #12 tabs 02/26/22 cephalexin 500 mg capsule 500 mg PO Q6H 10 days #40 caps 08/15/23 doxycycline hyclate 100 mg tablet 100 mg PO BID #20 tabs 08/15/23 lidocaine 5 % topical ointment 1 appl topical BEDTIME #30 grams 08/15/23 clindamycin HCl 300 mg capsule 600 mg (2 x 300 mg) PO Q8H 7 days 09/26/23 #42 caps cephalexin 500 mg capsule 500 mg PO QID 10 days #40 caps 01/07/24 doxycycline hyclate 100 mg tablet 100 mg PO BID #20 tabs 01/07/24 Allergies Allergy/AdvReac Type Severity Reaction Status Date / Time ziprasidone [From Geodon] AdvReac Unknown Verified 01/07/24 04:56 Review of Systems Review of Systems: Yes all other systems are reviewed and are negative PMFSH Past Medical History Medical History Substance abuse Social History Social History Substance Use Type: Crack/Cocaine, Heroin and IV Drugs Advance Directives: No Advance Directives Information Provided: No Do you have a plan to hurt others: No Plan Physical Exam Vital Signs: Vital Signs: Last Vital Signs Temp 98.2 F 01/07/24 05:42 Pulse 104 H 01/07/24 05:42 Resp 18 01/07/24 05:42 BP 148/70 H 01/07/24 05:42 Pulse Ox 99 01/07/24 05:42 BMI result Body Mass Index 27.4 Appearance: Alert. Oriented X3. No acute distress. ENT: Pharynx normal. Oral Mucosa moist Neck: Normal inspection. Neck supple. CVS: Normal heart rate and rhythm. Pulses normal. Respiratory: No respiratory distress. Equal air entry bilateral, no wheezing/rales/rhonchi Skin: Skin warm and dry. Normal skin color. Normal skin turgor. Extremities: No lower extremity edema. Bilateral forearm with chronic looking wound with granulation tissues and purulent base with surrounding cellulitis Neuro: Oriented X 3. Medications Administered Discontinued Medications Generic Name Dose Route Start Last Admin Trade Name Freq PRN Reason Stop Dose Admin Cephalexin HCl 500 mg 01/07/24 05:18 01/07/24 05:35 Cephalexin 500 Mg Capsule PO 01/07/24 05:19 500 mg ONCE ONE Administration Doxycycline Monohydrate 100 mg 01/07/24 05:18 01/07/24 05:35 Doxycycline Monohydrate 100 Mg Capsule PO 01/07/24 05:19 100 mg ONCE ONE Administration Medical Decision Making Medical Decision Making [facility] Narrative: Patient with chronic forearm wounds secondary to use of IV drugs where she is shooting still will prescribe doxycycline cephalexin follow up with wound clinic Discharge Plan Discharge Clinical Impression: Wounds, multiple open, arm Qualifiers: Encounter type: initial encounter Laterality: right Qualified Code(s): S41.101A - Unspecified open wound of right upper arm, initial encounter Patient Disposition: Home, Self-Care Instructions: Wound Infection (ED) Additional Instructions: Local care as advised Take antibiotic as prescribed Prescriptions: New cephalexin 500 mg capsule 500 mg PO QID 10 Days Qty: 40 0RF doxycycline hyclate 100 mg tablet 100 mg PO BID Qty: 20 0RF No Action metronidazole [Flagyl] 500 mg tablet 500 mg PO Q12H 7 Days Qty: 14 0RF doxycycline hyclate 100 mg capsule 100 mg PO BID 7 Days Qty: 14 0RF prednisone 20 mg tablet 60 mg PO DAILY Qty: 12 0RF hydroxyzine HCl 25 mg tablet 25 mg PO TID PRN (Reason: itching) Qty: 20 0RF hydrocortisone 2.5 % ointment 1 appl topical TID PRN (Reason: itching) Qty: 28.35 0RF clindamycin HCl 300 mg capsule 600 mg PO Q8H 7 Days Qty: 42 0RF doxycycline hyclate 100 mg tablet 100 mg PO BID Qty: 20 0RF cephalexin 500 mg capsule 500 mg PO Q6H 10 Days Qty: 40 0RF lidocaine 5 % ointment 1 appl topical BEDTIME Qty: 30 0RF Interventions: ED Discharge Assessment Last Done: 01/07/24 05:42 Discharge Date/Time: 01/07/24 05:46 Print Language: Kiswahili
[2024-01-07] MEDS: Doxycycline Monohydrate 100 MG CAPSULE PO (05:35)
[2024-01-07] MEDS: cephALEXin 500 MG CAPSULE PO (05:35)
[2024-01-07 05:42] VITALS: BP 148/70; PULSE 104; RESP 18; TEMP 36.8; O2SAT 99
--- NOTE | 2024-01-07 05:42 | PC.NURSE ---
pt refused all blood labs
== END 2024-01-07 05:46 | disposition home or self-care (01) ==
PROVIDERS: Emergency Provider Internal Medicine
DX: S41.101A Unspecified open wound of right upper arm, initial encounter (principal); F11.10 Opioid abuse, uncomplicated; X58.XXXA Exposure to other specified factors, initial encounter; F14.10 Cocaine abuse, uncomplicated; Y93.89 Activity, other specified; Y92.89 Other specified places as the place of occurrence of the external cause; Y99.8 Other external cause status; Z79.899 Other long term (current) drug therapy; Z71.51 Drug abuse counseling and surveillance of drug abuser
CPT/HCPCS: 99282; 99283

== ENCOUNTER 2024-02-24 09:14 | Emergency (ER) | payer OTHER, SELFPAY ==
--- NOTE | ~2024-02-24 | US_ITS ---
EXAMINATION: US TRIPLEX LOWER EXTREMITY, LEFT CLINICAL INFORMATION: Swelling erythema COMPARISON: None available. TECHNIQUE: Color-flow triplex imaging with spectral analysis and compression Doppler were performed on the left lower extremity. FINDINGS: Respiratory variation, normal compression and augmented flow are noted throughout the left lower extremity. The visualized common femoral vein, superficial femoral vein, profunda femoral vein, popliteal vein and midcalf peroneal and posterior tibial venous segments show no evidence of deep venous thrombosis. Contralateral common femoral vein is patent. There is no Erwin's cyst. Multiple left groin lymph nodes are noted morphologically benign-appearing the largest measuring up to 1.1 cm in short axis. Soft tissue edema overlying the calf. US/US venous duplex LE LT IMPRESSION: 1. No evidence of deep venous thrombosis involving the left lower extremity. 2. Multiple left groin lymph nodes are noted morphologically benign-appearing the largest measuring up to 1.1 cm in short axis. 3. Soft tissue edema overlying the calf. Electronically signed by: Shayy Tomlin MD 02/24/2024 11:06 AM [facility]
[2024-02-24 09:21] VITALS: BP 110/39; PULSE 86; RESP 18; TEMP 36.5; O2SAT 100; BMI 27.7
--- NOTE | 2024-02-24 09:54 | PC.NURSE ---
patient with bilateral upper extremity nonhealing wounds, states she continues to use IV drugs via these sites. last used yesterday. left lower extremity swelling/redness, pulse found w/ doppler. painful to the touch. states this has been ongoing for two days. difficult stick, attempting to obtain lab work at this time, pending us.
--- NOTE | 2024-02-24 09:59 | ED.GENADULT ---
HPI - General Adult General Chief complaint: Extremity Injury, Lower Stated complaint: l leg swollen Time Seen by Provider: 02/24/24 09:45 Source: patient Mode of arrival: ambulatory Limitations: no limitations History of Present Illness ED Provider: robles NEWBY narrative: Patient is a 43-year-old female with history of polysubstance use, currently injecting into nonhealing open wounds on bilateral forearms, mood disorder, ADHD presenting to the emergency department with complaint of left lower leg pain and swelling for the past 2 days. Denies fevers, chills, body aches. Denies chest pain, palpitations, shortness of breath. Denies numbness or tingling to left lower leg or foot. Seen in this ED on 01/07/24 for forearm wounds and was discharged home on doxycycline and keflex, referral to wound clinic. Patient did not follow up with wound clinic. MD complaint: left leg pain Onset (ago): day(s) Location: left and lower extremity Severity: severe Quality: aching Pain Consistency: constant Related Data Previous Rx's ?Medication ?Instructions ?Recorded doxycycline hyclate 100 mg capsule 100 mg PO BID 7 days #14 caps 10/24/20 metronidazole 500 mg tablet 500 mg PO Q12H 7 days #14 tabs 10/24/20 (Flagyl) hydrocortisone 2.5 % topical 1 appl topical TID PRN itching 02/26/22 ointment #28.35 grams hydroxyzine HCl 25 mg tablet 25 mg PO TID PRN itching #20 tabs 02/26/22 prednisone 20 mg tablet 60 mg (3 x 20 mg) PO DAILY #12 tabs 02/26/22 cephalexin 500 mg capsule 500 mg PO Q6H 10 days #40 caps 08/15/23 doxycycline hyclate 100 mg tablet 100 mg PO BID #20 tabs 08/15/23 lidocaine 5 % topical ointment 1 appl topical BEDTIME #30 grams 08/15/23 clindamycin HCl 300 mg capsule 600 mg (2 x 300 mg) PO Q8H 7 days 09/26/23 #42 caps cephalexin 500 mg capsule 500 mg PO QID 10 days #40 caps 01/07/24 doxycycline hyclate 100 mg tablet 100 mg PO BID #20 tabs 01/07/24 cephalexin 500 mg capsule 500 mg PO QID #40 caps 02/24/24 doxycycline hyclate 100 mg capsule 100 mg PO BID #20 caps 02/24/24 Allergies Allergy/AdvReac Type Severity Reaction Status Date / Time ziprasidone [From Guichodon] AdvReac Unknown Verified 02/24/24 09:22 Review of Systems Review of Systems: As per HPI. Yes all other systems are reviewed and are negative Constitutional: Constitutional: Reports as per HPI [facility] Past Medical History Medical History Substance abuse Social History Social History Substance Use Type: Crack/Cocaine, Heroin and IV Drugs Advance Directives: No Advance Directives Information Provided: No Do you have a plan to hurt others: No Plan Physical Exam ED Vital Signs: Vital Signs - 24 hr 02/24/24 09:21 02/24/24 11:18 Temperature 97.7 F 98.0 F Pulse Rate 86 74 Respiratory Rate 18 16 Blood Pressure 110/39 L 99/51 L Pulse Oximetry 100 95 Oxygen Delivery Method Room Air Room Air BMI result Body Mass Index 27.7 Vital signs have been reviewed and appear to be correct. Blood pressure normal. Heart rate normal. Respiratory rate normal. Temperature normal. Oxygen saturation normal. Const General: no acute distress Orientation/consciousness: oriented to person, oriented to place, oriented to time and patient oriented x3 Limitations: no limitations [facility] Head: Yes normocephalic and Yes atraumatic Ears: external ears normal General nose exam: Normal external nose present Face and sinus: Yes face symmetric Mouth: oropharynx normal and moist mucous membranes Throat: Yes uvula midline Eyes Pupils: Equal, round and reactive pupils present Neck Neck: Yes normal visual inspection and Yes supple Resp Effort & Inspection: normal respiratory effort and able to speak in complete sentences Auscultation: clear to auscultation bilaterally Cardio Rate: regular rate Rhythm: regular rhythm Heart sounds: S1 normal heart sound present and S2 normal heart sound present GI Palpation (GI): Soft to palpation and nontender Auscultation: normoactive bowel sounds General: Yes no CVA tenderness Back/Spine/Pelvis Back: no CVA tenderness Skin General skin exam: elasticity normal and turgor normal Neuro General: oriented to person, oriented to place, oriented to time, patient oriented x3, moves all extremities, no focal motor deficits and CN's II-XI intact bilaterally Cranial nerves: Yes Equal, round and reactive pupils present Cognition (Neuro): normal cognition Extrem Other: large chronic appearing wounds to bilateral forearms with visible granulation tissue surrounded by erythema, scabbing, worse compared to photos on visit from 09/26/23, see photos General: Yes full ROM Left lower extremity: lower leg Details: erythema Location: of the distal lower leg Location: anteriorly, tenderness (diffuse), pitting edema Details: 2+ and warmth Location: of the distal lower leg, ankle Details: pitting edema Details: pitting and 2+, normal ROM (slightly decreased due to edema) and warmth Location: diffusely and foot Details: tenderness (diffuse) Location: of the dorsal foot, toes with normal ROM, warmth Location: of the dorsal foot, edema Location: diffusely Details: pitting and 2+ and vascular exam Details: dorsalis pedis pulse present (not palpable, auscultated via doppler); abnormal capillary refill (slightly delayed) Medications Administered Discontinued Medications Generic Name Dose Route Start Last Admin Trade Name Shannan PRN Reason Stop Dose Admin Hydromorphone HCl 1 mg 02/24/24 09:59 02/24/24 10:18 Hydromorphone Hcl 1 Mg/Ml Syringe IVPUSH 02/24/24 10:00 1 mg ONCE ONE Administration Protocol Medical Decision Making Medical Decision Making MDM Narrative: Patient is a 43-year-old female with history of polysubstance use, currently injecting into nonhealing open wounds on bilateral forearms, mood disorder, ADHD presenting to the emergency department with complaint of left lower leg pain and swelling for the past 2 days. On exam patient is awake, A+Ox3, VS WNL, afebrile, normal neurological exam without focal deficits, physical exam findings as above. Given reported symptoms and physical exam findings, initial differential includes but is not limited to DVT, cellulitis. Ultrasound notable for no DVT, but multiple left groin lymph nodes. My interpretation is in agreement with the radiologist's interpretation. Unable to obtain all labs as patient refusing additional attempts. Given extent of left lower leg cellulitis, as well as forearm wounds, hospital admission recommended, however, patient is refusing admission at this time. The patient has decided to leave against medical advice because she states that she has children to care for and no one else to watch them. They have normal mental status and adequate capacity to make medical decisions. The patient refuses hospital admission and wants to be discharged. The risks have been explained to the patient, including sepsis, worsening illness, chronic pain, permanent disability and . The benefits of admission have also been explained, including the availability and proximity of nurses, physicians, monitoring, diagnostic testing, treatment and IV antibiotics. The patient was able to understand and state the risks and benefits of hospital admission. This was witnessed by nurse Ashley Jade and me. They had the opportunity to ask questions about their medical condition. The patient was treated to the extent that they would allow and knows that they may return for care at any time. Patient referred to wound clinic for follow up and advised she can return to the ED at any time should she change her mind Will send prescriptions for doxycycline and keflex, refer to wound clinic. Patient verbalized understanding of and agreement with plan. Differential Diagnosis Differential Diagnoses: The differential diagnosis associated with the presentation includes As per [facility] Admission/Observation Consideration of admission/observation: Escalation of care including admission/observation considered Admission recommended, patient refused. Lab Data [facility] Lab Attestation statement: I reviewed the patient's lab results. As per [facility] 02/24/24 10:07 Labs: Lab Results 02/24/24 Range/Units 10:07 Sodium 134 L (135-145) mmol/L Potassium 3.5 (3.3-5.1) mmol/L Chloride 103 (96-108) mmol/L Carbon Dioxide 24 (22-29) mmol/L Anion Gap 11 L (12-20) BUN 16 (9-16) mg/dL Creatinine 0.79 (0.5-1.4) mg/dL Estim Creat Clear Calc 89.1 Estimated GFR > 60 Random Glucose 101 (60-115) mg/dL Calcium 8.8 (8.4-10.2) mg/dL Magnesium 2.1 (1.6-2.6) mg/dL Total Bilirubin 0.3 (0.0-1.0) mg/dL AST 39 H (5-31) U/L ALT 20 (0-31) U/L Alkaline Phosphatase 101 (39-117) U/L Total Protein 8.6 H (6.5-8.0) g/dL Albumin 3.3 L (3.5-5.0) g/dL Ethyl Alcohol < 10 mg/dL Independent Interpretation I performed an independent interpretation of an: Ultrasound Interpretation: No LLE DVT, multiple groin lymph nodes. Radiology Impression Discussion of test interpretation with radiology: I have reviewed the radiologist's reading. Radiologist Impression: XR/XR chest 2V IMPRESSION: 1. Chronic emphysematous changes. 2. Blunting of the bilateral costophrenic recesses, left greater right which may reflect trace pleural effusions versus scarring. 3. Slight patchy radiopacity involving the bilateral lung bases, right. Left which may reflect infectious/inflammatory etiology as opposed to chronic changes. 4. Biapical pleural-parenchymal scarring. External Record Review External record reviewed: Inpatient record, Office record and Outpatient record Prescription Management I considered prescription management with: Antibiotic Discharge Plan Discharge Clinical Impression: Cellulitis of left lower extremity Patient Disposition: Left Against Medical Advice Instructions: Cellulitis (DC) Additional Instructions: You were evaluated in the emergency department today for left lower leg pain and swelling. Your ultrasound did not show evidence of a blood clot. You have a significant skin infection, also known as cellulitis. It was recommended that you be admitted to the hospital for IV antibiotics which you refused. You are being prescribed antibiotics to take at home, complete the full courses as prescribed. You can return to the emergency department at any time if you should change your mind and we recommend that you do so. Return with fevers, increasing redness, swelling, new numbness/tingling or any other concerning symptoms. Prescriptions: New doxycycline hyclate 100 mg capsule 100 mg PO BID Qty: 20 0RF cephalexin 500 mg capsule 500 mg PO QID Qty: 40 0RF No Action metronidazole [Flagyl] 500 mg tablet 500 mg PO Q12H 7 Days Qty: 14 0RF doxycycline hyclate 100 mg capsule 100 mg PO BID 7 Days Qty: 14 0RF prednisone 20 mg tablet 60 mg PO DAILY Qty: 12 0RF hydroxyzine HCl 25 mg tablet 25 mg PO TID PRN (Reason: itching) Qty: 20 0RF hydrocortisone 2.5 % ointment 1 appl topical TID PRN (Reason: itching) Qty: 28.35 0RF clindamycin HCl 300 mg capsule 600 mg PO Q8H 7 Days Qty: 42 0RF doxycycline hyclate 100 mg tablet 100 mg PO BID Qty: 20 0RF cephalexin 500 mg capsule 500 mg PO Q6H 10 Days Qty: 40 0RF lidocaine 5 % ointment 1 appl topical BEDTIME Qty: 30 0RF cephalexin 500 mg capsule 500 mg PO QID 10 Days Qty: 40 0RF doxycycline hyclate 100 mg tablet 100 mg PO BID Qty: 20 0RF Referrals: [facility] – [place] Wound Care Management [Provider Group] Stand Alone Forms: Against Medical Advice Print Language: Croatian
--- NOTE | 2024-02-24 10:17 | MHC.EDTECH ---
Difficult draw. venipuncture x2. Only able to collect one set of blood cultures and one green gel. Patient refusing labs at this time. Ashley HERRON aware.
[2024-02-24] MEDS: HYDROmorphone HCl 1 MG/ML SYRINGE IVPUSH (10:18)
--- NOTE | 2024-02-24 10:29 | PC.NURSE ---
patient refusing further lab work/IV at this time. verbal okay from provider for IM pain medication injection. ultrasound at bedside.
[2024-02-24 10:30] LABS: Alanine Aminotransferase 20 U/L (0-31); Albumin Level 3.3 g/dL (3.5-5.0); Alkaline Phosphatase 101 U/L (39-117); Anion Gap 11 (12-20); Aspartate Amino Transferase 39 U/L (5-31); Bilirubin Total 0.3 mg/dL (0.0-1.0); Blood Urea Nitrogen 16 mg/dL (9-16); Calcium 8.8 mg/dL (8.4-10.2); Carbon Dioxide 24 mmol/L (22-29); Chloride 103 mmol/L (96-108); Creatinine Clr Calc Pharmacy 89.1; Estimated Glomerular Filt Rate > 60; Ethanol < 10 mg/dL; Glucose Random 101 mg/dL (60-115); Magnesium 2.1 mg/dL (1.6-2.6); Potassium 3.5 mmol/L (3.3-5.1); Sodium 134 mmol/L (135-145); Total Protein 8.6 g/dL (6.5-8.0)
[2024-02-24 11:18] VITALS: BP 99/51; PULSE 74; RESP 16; TEMP 36.7; O2SAT 95
[2024-02-24] MEDS: cephALEXin 500 MG CAPSULE PO (12:20)
[2024-02-24] MEDS: Doxycycline Monohydrate 100 MG CAPSULE PO (12:20)
--- NOTE | 2024-02-24 12:25 | PC.NURSE ---
patient educated on risks of leaving against medical advice, verbal understanding on this, follow up care, and medications. paperwork signed
[2024-02-24 12:26] VITALS: BP 99/51; PULSE 74; RESP 16; TEMP 36.7; O2SAT 95
== END 2024-02-24 12:26 | disposition left against medical advice (07) ==
PROVIDERS: Emergency Provider Emergency Medicine Emergency Medical Services
DX: L03.116 Cellulitis of left lower limb (principal); M79.662 Pain in left lower leg; R60.0 Localized edema; F19.10 Other psychoactive substance abuse, uncomplicated; Z53.29 Procedure and treatment not carried out because of patient's decision for other reasons
CPT/HCPCS: 36415; 80053; 80307; 83735; 87040; 93971; 96374; 99284; J1171

== ENCOUNTER 2024-03-29 10:00 | Emergency (ER) | payer OTHER, SELFPAY ==
[2024-03-29 10:59] VITALS: BP 99/48; PULSE 88; RESP 16; TEMP 36.9; O2SAT 99; BMI 26.9
--- NOTE | 2024-03-29 11:10 | ED.GENADULT ---
HPI - General Adult General Chief complaint: Skin/Abscess/Foreign Body Stated complaint: arm infection Time Seen by Provider: 03/29/24 12:44 Source: patient Mode of arrival: ambulatory Limitations: no limitations History of Present Illness ED Provider: Kim Aguero PA-C HPI narrative: Patient is a 43 year old assigned female at with a history of IVDU presenting to the emergency department today with a worsening left forearm wound. Patient states that she has been having issues with a left forearm wound that continues not to get better. Patient states that she does not want to have any lab work done or stay in the hospital. Patient states that she wants oral antibiotics and to go. Patient denies any dizziness, lightheadedness, abdominal pain, nausea, vomiting, fever, chills, blurry vision, double vision, loss of vision, chest pain, difficulty breathing, shortness of breath, back pain, night sweats, pain with urination, increased urinary frequency, increased urinary urgency, blood in her urine or stool, syncope or a near syncopal episode, recent trauma or falls, bowel incontinence, bladder incontinence, or any other complaints at this time. Relieving factors: none Exacerbating factors: none Associated symptoms: denies other symptoms Related Data Previous Rx's ?Medication ?Instructions ?Recorded doxycycline hyclate 100 mg capsule 100 mg PO BID 7 days #14 caps 10/24/20 metronidazole 500 mg tablet 500 mg PO Q12H 7 days #14 tabs 10/24/20 (Flagyl) hydrocortisone 2.5 % topical 1 appl topical TID PRN itching 02/26/22 ointment #28.35 grams hydroxyzine HCl 25 mg tablet 25 mg PO TID PRN itching #20 tabs 02/26/22 prednisone 20 mg tablet 60 mg (3 x 20 mg) PO DAILY #12 tabs 02/26/22 cephalexin 500 mg capsule 500 mg PO Q6H 10 days #40 caps 08/15/23 doxycycline hyclate 100 mg tablet 100 mg PO BID #20 tabs 08/15/23 lidocaine 5 % topical ointment 1 appl topical BEDTIME #30 grams 08/15/23 clindamycin HCl 300 mg capsule 600 mg (2 x 300 mg) PO Q8H 7 days 09/26/23 #42 caps cephalexin 500 mg capsule 500 mg PO QID 10 days #40 caps 01/07/24 doxycycline hyclate 100 mg tablet 100 mg PO BID #20 tabs 01/07/24 cephalexin 500 mg capsule 500 mg PO QID #40 caps 02/24/24 doxycycline hyclate 100 mg capsule 100 mg PO BID #20 caps 02/24/24 cephalexin 500 mg capsule 500 mg PO Q6H 7 days #28 caps 03/29/24 doxycycline hyclate 100 mg tablet 100 mg PO BID 7 days #14 tabs 03/29/24 Allergies Allergy/AdvReac Type Severity Reaction Status Date / [facility] AdvReac Unknown Verified 03/29/24 11:02 Review of Systems Constitutional: Constitutional: Reports no additional constitutional complaints, Denies chills, Denies fever(s) and Denies night sweats Eyes: Eyes: Reports no additional eye complaints, Denies blurry vision, Denies change in vision, Denies diplopia, Denies eye discharge, Denies loss of vision and Denies eye pain ENT: Denies dizziness Cardiovascular: Cardiovascular: Reports no additional cardiovascular complaints, Denies chest pain, Denies lightheadedness, Denies Loss of Consciousness and Denies dyspnea Respiratory: Respiratory: Reports no additional respiratory complaints and Denies dyspnea Gastrointestinal: Gastrointestinal: Reports no additional gastrointestinal complaints, Denies abdominal pain, Denies melena, Denies hematochezia, Denies change in bowel habits and Denies change in stool character Genitourinary: Genitourinary: Denies hematuria, Denies urinary frequency, Denies dysuria, Denies urinary incontinence, Denies urinary hesitancy and Denies urinary urgency Musculoskeletal: Musculoskeletal: Reports no additional musculoskeletal complaints, Denies numbness and Denies tingling Integumentary/Breasts: Comments: left forearm wound Neurologic: Denies dizziness, Denies loss of vision, Denies numbness and Denies tingling Psychiatric: Psychiatric: Reports no additional psychiatric complaints Endocrine: Endocrine: Reports no additional endocrine complaints Hematologic/Lymphatic: Hematologic/Lymphatic: Reports no additional hematologic/lymphatic complaints Allergic/Immunologic: Allergic/Immunologic: Reports no additional allergic/immunologic complaints PMFSH Past Medical History Attestation statement: The following information was validated with the patient. Source: old records reviewed and nursing notes reviewed Medical History Substance abuse Social History Social History Smoked in Last 30 Days: Yes Use of substances other than those prescribed or required for medical reasons: Yes Substance Use Type: Heroin Advance Directives: No Advance Directives Information Provided: No Do you have a plan to hurt others: No Plan Physical Exam ED Vital Signs: Vital Signs - 24 hr 03/29/24 10:59 03/29/24 13:34 Temperature 98.5 F 98.5 F Pulse Rate 88 88 Respiratory Rate 16 16 Blood Pressure 99/48 L 99/48 L Pulse Oximetry 99 99 Oxygen Delivery Method Room Air Room Air BMI result Body Mass Index 26.9 Const General: cooperative, no acute distress, alert and awake Nutritional Appearance: well nourished Orientation/consciousness: patient oriented x3 Limitations: no limitations HENMT Head: Yes normal to inspection and Yes atraumatic Ears: hearing grossly normal bilaterally and external ears normal General nose exam: Normal external nose present, no nasal discharge noted and no epistaxis Face and sinus: Yes normal facial exam, No abrasion and No laceration Mouth: Normal oral and palatal mucosa present, no drooling and no muffled voice Eyes General: appearance normal, both eyes and all related structures Periorbital: periorbital findings normal Eyelids: Yes eyelids normal Conjunctivae: conjunctivae normal Pupils: Equal, round and reactive pupils present EOM: EOMs intact bilaterally Neck Neck: Yes normal visual inspection, Yes full ROM and Yes no lymphadenopathy Chest Chest palpation & inspection: normal inspection of the chest Resp Effort & Inspection: normal respiratory effort and able to speak in complete sentences GI Inspection: Yes normal to inspection Neuro General: patient oriented x3 and moves all extremities Cranial nerves: Yes Equal, round and reactive pupils present Cognition (Neuro): normal cognition Extrem Other: General: Yes full ROM and Yes capillary refill normal Psych Appearance: grossly normal Mental Status: mental status grossly normal Affect: normal affect Attitude: cooperative Thought process: Normal thought process present Thought content: Normal thought content present Insight: Good insight present (Psych) Course Course Course Narrative: This is a rapid medical exam performed by Marion Gamboa NP: Additional HPI, ROS, PE not included below will be deferred to primary provider. Patient is a 43-year-old female with history of IVDU, chronic forearm wounds presenting with worsening redness to wounds. Here on 02/23 and admission was advised but patient signed out AMA on doxy and keflex. Plan: blood cx, lactic, labs Medical Decision Making Medical Decision Making [facility] Narrative: Patient is a 43 year old assigned female at with a history of IVDU presenting to the emergency department today with a worsening left forearm wound. Patient's physical exam was as noted in the physical exam portion of this note. Patient's refused blood work of any kind or imaging of any kind. Patient did supply a UDS which was positive for multiple substances. I explained my physical exam findings to the patient. I answered all questions asked by the patient. I stressed the importance of the patient having blood work done, imaging of the left forearm, and admission to the hospital for IV antibiotics and possible surgical management of her left forearm wound. The patient stated that she understood the importance of it and still did not want it. I explained the risks of refusing these things to the patient including but not limited to: , permanent disability, increased pain, loss of limb, sepsis, etc. Patient stated that she understood all of those risks and still did not want to participate in receiving medical care - she stated again she only wanted to be prescribed oral antibiotics and to be discharged. Patient AOx4 and capable of making her own decisions. Patient signed out AMA. Differential Diagnosis Differential Diagnoses: The differential diagnosis associated with the presentation includes Osteomyelitis Cellulitis Admission/Observation Consideration of admission/observation: Escalation of care including admission/observation considered Patient would have been admitted had she participated in a medical work up and consented to admission. Lab Data [facility] Lab Attestation statement: I reviewed the patient's lab results. My interpretation of these results are in the MDM Rationale portion of this note. Labs: Lab Results 03/29/24 Range/Units 11:33 Urine Opiates Screen POSITIVE H (Not Detect) Ur Buprenorphine Scrn Not Detected (Not Detect) ng/mL Ur Oxycodone Screen Not Detected (Not Detect) ng/mL Urine Methadone Screen Positive H (Not Detect) ng/mL Urine Fentanyl Screen POSITIVE H (Not Detect) Ur Barbiturates Screen Not Detected (Not Detect) Ur Phencyclidine Scrn Not Detected (Not Detect) Ur Amphetamines Screen Not Detected (Not Detect) U Benzodiazepines Scrn Not Detected (Not Detect) Urine Cocaine Screen POSITIVE H (Not Detect) U Marijuana (THC) Screen Not Detected (Not Detect) Prescription Management I considered prescription management with: Antibiotic (patient prescribed antibiotics for left forearm cellulitis) Discharge Plan Discharge Clinical Impression: Cellulitis, Active intravenous drug use Patient Disposition: Left Against Medical Advice Instructions: Cellulitis (DC) Additional Instructions: Your wound is large and infected - I have concerns that it is in the bone and you need IV antibiotics. We discussed at length, the risk of this infection getting worse and spreading to your bloodstream causing , permanent disability, and/or significant decrease in quality of life - you acknowledged these risks and have still requested to leave against medical advice. Please reconsider and return to your closest emerency department. Prescriptions: New cephalexin 500 mg capsule 500 mg PO Q6H 7 Days Qty: 28 0RF doxycycline hyclate 100 mg tablet 100 mg PO BID 7 Days Qty: 14 0RF No Action metronidazole [Flagyl] 500 mg tablet 500 mg PO Q12H 7 Days Qty: 14 0RF doxycycline hyclate 100 mg capsule 100 mg PO BID 7 Days Qty: 14 0RF prednisone 20 mg tablet 60 mg PO DAILY Qty: 12 0RF hydroxyzine HCl 25 mg tablet 25 mg PO TID PRN (Reason: itching) Qty: 20 0RF hydrocortisone 2.5 % ointment 1 appl topical TID PRN (Reason: itching) Qty: 28.35 0RF clindamycin HCl 300 mg capsule 600 mg PO Q8H 7 Days Qty: 42 0RF doxycycline hyclate 100 mg capsule 100 mg PO BID Qty: 20 0RF cephalexin 500 mg capsule 500 mg PO QID Qty: 40 0RF doxycycline hyclate 100 mg tablet 100 mg PO BID Qty: 20 0RF cephalexin 500 mg capsule 500 mg PO Q6H 10 Days Qty: 40 0RF lidocaine 5 % ointment 1 appl topical BEDTIME Qty: 30 0RF cephalexin 500 mg capsule 500 mg PO QID 10 Days Qty: 40 0RF doxycycline hyclate 100 mg tablet 100 mg PO BID Qty: 20 0RF Stand Alone Forms: Against Medical Advice Interventions: ED Discharge Assessment Last Done: 03/29/24 13:34 Discharge Date/Time: 03/29/24 13:34 Print Language: Moldovan
--- NOTE | 2024-03-29 11:35 | MHC.EDTECH ---
Pt px to triage for labs and BCx. Intially refused lab stating she just wanted Abx only and that she had labs completed 3 wks ago. Pt was advised that labs were required today for Dx and Tx and after stating to patient that her refusal would delay her care, she doubtfully agreed. Upon performing phelbotomy patient jerked leading to an unsuccessfull stick and then followed with overt refusal of labs and BCx stating that she just wants Abx only. ladderman Donna Glynn notified and aware.
[2024-03-29 11:50] LABS: Amphetamine Screen Urine Not Detected (Not Detect); Barbiturates, Urine Not Detected (Not Detect); Benzodiazepines Screen Urine Not Detected (Not Detect); Buprenorphine Scr Not Detected (Not Detect); Cannabinoid Screen Urine Not Detected (Not Detect); Cocaine Screen Urine POSITIVE (Not Detect); Fentanyl, urine POSITIVE (Not Detect); Methadone Screen, Urine Positive (Not Detect); Opiate Screen Urine POSITIVE (Not Detect); Oxycodone Screen Urine Not Detected (Not Detect); Phencyclidine Screen Urine Not Detected (Not Detect)
[2024-03-29 13:34] VITALS: BP 99/48; PULSE 88; RESP 16; TEMP 36.9; O2SAT 99
--- OUTSIDE RECORDS SUMMARY | 2024-03-29 14:56 | XMS_ITS | Clinical Summary ---
Author Organization [facility] it Address [address] [place] [address] Care Team Providers Care Punch Press Operator Helper Name Role Phone Shyamlyndon Ruth Anncricket Primary Care Provider [phone] Allergies Active Allergy Reactions Criticality Noted Date Comments Ziprasidone Hcl Other 09/27/2013 Makes tongue twist around Medications Medication Sig Dispensed Refills Start Date End Date Status clonazePAM (KlonoPIN) 0.5 mg tablet 04/08/2023 Active zolpidem (AMBIEN) 5 mg tablet Take 1 tablet (5 mg total) by mouth at bedtime as needed. Max Daily Amount: 5 mg 03/18/2023 Active OXcarbazepine (TRILEPTAL) 150 mg tablet Take 1 tablet (150 mg total) by mouth 2 (two) times a day. Active selenium sulfide (SELSUN) 2.5 % lotion Apply to lightened skin areas daily for one week. Let sit for 10 minutes before rinsing 04/10/2023 Active amphetamine-dextroamp hetamine (ADDERALL) 30 mg tablet Take 1 tablet (30 mg total) by mouth 2 (two) times a day. Max Daily Amount: 60 mg Active Active Problems Problem Noted Date Diagnosed Date IV drug abuse 05/29/2019 Overview (02/19/2024): Cocaine, Heroin ADD (attention deficit disorder) 10/22/2014 Bipolar disorder 10/22/2014 Overview (02/19/2024): [place], Pathways Mild intermittent asthma 10/22/2014 Immunizations Name Administration Dates Next Due Tdap Tetanus diptheria acell ular pertussis (Boostrix; Adacel) 7yo and older 10/22/2014 Surgical History Surgery Date Site/Laterality Comments OTHER SURGICAL HISTORY PROCEDURE: DENIES PREVIOUS SURGERY Medical History Medical History Date Comments Asthma DX:Asthma Bipolar disorder (CMS/HCC) DX:Bi polar disorder (HCC) Hx of hepatitis C 12/25/2013 DX:Hx of hepat itis C; COMMENT: Viral load negative 12/25/2013. ADD (attention deficit disorder) 10/22/2014 DX:ADD (attention deficit disorder) IV drug abuse (CMS/HCC) 05/29/2019 DX:IV dr ug abuse (HCC); COMMENT: Cocaine, Heroin Mild intermittent asthma 10/22/2014 DX:Mild intermittent asthma Nicotine vapor product user 05/29/2019 DX:N icotine vapor product user; COMMENT: Found vaping in her [place] [facility], advised to discontinue, patient left AMA Family History Medical History Relation Name Comments Other cancer Father ? gastric tumor Relation Name Status Comments Brother Alive x 2; A&W Father Alive Maternal Grandfather Maternal Grandmother Mother Alive bipolar/anxiety , insomnia Paternal Grandfather Paternal Grandmother Sister Alive A&W Son Alive x 2; bipolar, A DHD Social History Tobacco Use Types Packs/Day Years Used Date Smoking Tobacco: Former Cigarettes 0.5 21.3 S tarted: 12/19/2002 Smokeless Tobacco: Never Alcohol Use Standard Drinks/Week Comments No 0 (1 standard drink = 0.6 oz pur e alcohol) Sex and Gender Information Value Date Recorded Sex Assigned at Not on file Gender Identity Not on file Sexual Orientation Not on file Obstetrics History Last Filed Vital Signs Vital Sign Reading Time Taken Comments Blood Pressure 71/38 07/25/2023 9:16 AM EDT Pulse 77 07/25/2023 9:16 AM EDT Temperature - - Respiratory Rate - - Oxygen Saturation - - Inhaled Oxygen Concentration - - Weight 82.1 kg (181 lb) 07/25/2023 9:16 AM EDT Height 165.1 cm (5' 5 ) 07/25/2023 9:16 AM EDT Body Mass Index 30.12 07/25/2023 9:16 AM EDT Plan of Treatment Upcoming Encounters Date Type Department Care Team (Late st Contact Info) Description 08/05/2024 9:00 AM EDT Office Visit Adult Medicine [address] [phone] Marya Irby MD [facility] [place] [address] Health Maintenance Due Date Last Done Comments Breast Cancer Screening 1979 Pneumococcal Vaccine: Pediat rics (0 to 5 Years) and At-Risk Patients (6 to 64 Years) (1 of 2 - PCV) 08/30/1985 Hepatitis A Vaccines (1 of 2 - Risk 2-dose series) 08/30/1998 Hepatitis B Vaccines (1 of 3 - 19+ 3-dose series) 08/30/1998 Cervical Cancer Screening: P ap Smear 02/21/2017 02/21/2014 Depression Screening 05/01/2022 HIV Screening 05/01/2022 Social Influencers of Health Screening 05/01/2022 COVID-19 Vaccine ( - 2023-2 5 season) 2023 Influenza Vaccine (#1) 2023 DTaP,Tdap,and Td Vaccines (2 - Td or Tdap) 10/22/2024 10/22/2014 Hepatitis C Screening Completed 12/19/2013 HIB Vaccines Aged Out No longer eligi ble based on patient's age to complete this topic HPV Vaccines Aged Out No longer eligi ble based on patient's age to complete this topic IPV Vaccines Aged Out No longer eligi ble based on patient's age to complete this topic MMR Vaccines Aged Out No longer eligi ble based on patient's age to complete this topic Meningococcal ACWY Vaccine Aged Out N o longer eligible based on patient's age to complete this topic RSV Immunization Patients Un agapito 20 months Aged Out No longer eligible b ased on patient's age to complete this topic Varicella Vaccines Aged Out No longer eligible based on patient's age to complete this topic Procedures Procedure Name Priority Date/Time Associated Diagnosis Comments PAP SMEAR Routine 02/21/2014 HEPATITIS C SCREENING Routine 12/19/2013 from Last 3 Months or Most Recently Relevant to Health Maintenance Results * Pap Smear (02/21/2014) Pap smear Abstracted. No Interpretation Historical Provider MD RISSA SMITH E * Hepatitis C Screening (12/19/2013) Hepatitis C Screening Abstracted Historical Provider MD RISSA Harper from Last 3 Months or Most Recently Relevant to Health Maintenance Care Teams Punch Press Operator Helper Relationship Specialty Start Date End Date Raj Wang DO [address] [place] [address] PCP - General 03/30/23
== END 2024-03-29 13:34 | disposition left against medical advice (07) ==
PROVIDERS: Registered Nurse Emergency; Emergency Provider Emergency Medicine
DX: L03.114 Cellulitis of left upper limb (principal); F11.10 Opioid abuse, uncomplicated; F14.10 Cocaine abuse, uncomplicated; Z51.81 Encounter for therapeutic drug level monitoring
CPT/HCPCS: 80307; 99284

== ENCOUNTER 2025-01-17 11:13 | Emergency (ER) | payer OTHER, SELFPAY ==
[2025-01-17 11:47] VITALS: BP 120/58; PULSE 88; RESP 18; TEMP 36.6; O2SAT 100; BMI 24.0
--- NOTE | 2025-01-17 11:47 | ED_ITS ---
HPI - General Adult General Chief complaint: Urogenital-Female Stated complaint: Genital Swelling Time Seen by Provider: 01/17/25 11:47 Source: patient, RN notes reviewed and old records reviewed Mode of arrival: ambulatory Limitations: no limitations History of Present Illness ED Provider: Bee NEWBY narrative: Patient is a 44 year-old female presenting to the ED stating that her signi ficant other tested positive for gonorrhea. She went to her PCP and was prescribed a course of doxycycline, but the PCP did not have the ceftriaxone injection so she was referred here. Patient complains of dysuria and vaginal discharge. She is adamantly refusing additional STI testing or labs but is agreeable to UA. MD complaint: STI exposure Related Data Previous Rx's ?Medication ?Instructions ?Recorded doxycycline hyclate 100 mg capsule 100 mg PO BID 7 day s #14 caps 10/24/20 metronidazole 500 mg tablet 500 mg PO Q12H 7 days #14 tabs 10/24/20 (Flagyl) hydrocortisone 2.5 % topical 1 appl topical TID PRN it taurus 02/26/22 ointment #28.35 grams hydroxyzine HCl 25 mg tablet 25 mg PO TID PRN itching #20 tabs 02/26/22 prednisone 20 mg tablet 60 mg (3 x 20 mg) PO DAILY # 12 tabs 02/26/22 cephalexin 500 mg capsule 500 mg PO Q6H 10 days #40 ca ps 08/15/23 doxycycline hyclate 100 mg tablet 100 mg PO BID #20 ta bs 08/15/23 lidocaine 5 % topical ointment 1 appl topical BEDTIME #30 grams 08/15/23 clindamycin HCl 300 mg capsule 600 mg (2 x 300 mg) PO Q8H 7 days 09/26/23 #42 caps cephalexin 500 mg capsule 500 mg PO QID 10 days #40 ca ps 01/07/24 doxycycline hyclate 100 mg tablet 100 mg PO BID #20 ta bs 01/07/24 cephalexin 500 mg capsule 500 mg PO QID #40 caps 02/23 doxycycline hyclate 100 mg capsule 100 mg PO BID #20 c aps 02/24/24 cephalexin 500 mg capsule 500 mg PO Q6H 7 days #28 cap s 03/29/24 doxycycline hyclate 100 mg tablet 100 mg PO BID 7 days #14 tabs 03/29/24 cefuroxime axetil 500 mg tablet 500 mg PO BID #10 tabs 01/17/25 Allergies Allergy/AdvReac Type Severity Reaction Status Date / Time ziprasidone (From Bassem) AdvReac Unknown Verified 01/17/25 11:49 Review of Systems Review of Systems: as per hpi Yes all other systems are reviewed and are negative Constitutional: Constitutional: Reports as per HPI [facility] Past Medical History Medical History Substance abuse Social History Social History Substance Use Type: Heroin Advance Directives: No Advance Directives Information Provided: No Physical Exam ED Vital Signs: Vital Signs - 24 hr 01/17/25 11:47 Temperature 98 F Pulse Rate 88 Respiratory Rate 18 Blood Pressure 120/58 L Pulse Oximetry 100 Oxygen Delivery Method Room Air BMI result Body Mass Index 24.0 Vital signs have been reviewed and appear to be correct. Blood pressure normal. Heart rate normal. Respiratory rate normal. Temperature normal. Oxygen saturation normal. Const General: no acute distress Orientation/consciousness: oriented to person, oriented to place, oriented to time and patient oriented x3 Limitations: no limitations HENMT Head: Yes normocephalic and Yes atraumatic Ears: external ears normal General nose exam: Normal external nose present Face and sinus: Yes face symmetric Mouth: oropharynx normal and moist mucous membranes Throat: Yes uvula midline Eyes Pupils: Equal, round and reactive pupils present Neck Neck: Yes normal visual inspection and Yes supple Resp Effort & Inspection: normal respiratory effort and able to speak in complete sentences Auscultation: clear to auscultation bilaterally Cardio Rate: regular rate Rhythm: regular rhythm Heart sounds: S1 normal heart sound present and S2 normal heart sound present GI Palpation (GI): Soft to palpation and nontender Auscultation: normoactive bowel sounds General: Yes no CVA tenderness Back/Spine/Pelvis Back: no CVA tenderness Skin General skin exam: elasticity normal and turgor normal Neuro General: oriented to person, oriented to place, oriented to time, patient oriented x3, moves all extremities, no focal motor deficits and CN's II-XI intact bilaterally Cranial nerves: Yes Equal, round and reactive pupils present Cognition (Neuro): normal cognition Extrem General: Yes full ROM, Yes no pedal edema and Yes no calf tenderness Psych Mental Status: mental status grossly normal Affect: normal affect Thought process: Normal thought process present Medications Administered Discontinued Medications Generic Name Dose Route Start Last Admin Trade Name Shannan PRN Reason Stop Dose Admin Ceftriaxone Sodium 500 mg/ 0 mg 01/17/25 11:54 01/17/25 12:47 Lidocaine HCl 1 ml IM 01/17/25 11:55 1 kit ONCE ONE Administration Medical Decision Making Medical Decision Making [facility] Narrative: Patient is a 44 year-old female presenting to the ED stating that her significant other tested positive for gonorrhea. On exam patient is awake, A+Ox3, VS WNL, afebrile, normal neurological exam without focal deficits, physical exam findings as above. Given reported symptoms and physical exam findings, initial differential includes but is not limited to STI, STI exposure, UTI. Patient adamantly declining additional STI testing, labs, or pelvic exam. She is amenable to urinalysis. Will treat with ceftriaxone. She has already been prescribed doxycycline. Stressed the importance of following up with PCP or DRUG AND ALCOHOL TREATMENT SPECIALIST for ongoing symptoms as it is possible she has concurrent infections. UA notable for 3+ leuokocytes, >50 wbcs, 1+ bacteria. Given that she is experiencing dysuria will also treat for uti. Discussed the importance of follow up with patient. Return precautions discussed. Patient verbalized understanding of and agreement with plan. Differential Diagnosis Differential Diagnoses: The differential diagnosis associated with the presentation includes as per [facility] Admission/Observation Consideration of admission/observation: Escalation of care including admission/observation considered Patient would have been admitted to the hospital and transferred to appropriate facility had their clinical presentation warranted hospital admission. Lab Data [facility] Lab Attestation statement: I reviewed the patient's lab results. as per [facility] Labs: Lab Results 01/17/25 Range/Units 12:17 Urine Color Yellow Urine Appearance Cloudy Urine pH 6.5 (5.0-9.0) Ur Specific [place] 1.020 (1.005-1.025) Urine Protein Negative (Neg-Trace) mg/dL Urine Glucose (UA) Negative (Negative) mg/dL Urine Ketones Negative (Negative) mg/dL Urine Blood Negative (Negative) Urine Nitrite Negative (Negative) Ur Leukocyte Esterase Large (3+) H (Negative) Urine RBC 0-2 (0-2) /HPF Urine WBC >50 H (0-5) /HPF Ur Squamous Epith Cells 6-10 (0-2) /HPF Urine Bacteria 1+ (None Seen) Hyaline Casts 0-2 (0-2) /LPF Urine Test NEGATIVE (NEGATIVE) External Record Review External record reviewed: Inpatient record, Office record and Outpatient record Prescription Management I considered prescription management with: Antibiotic Discharge Plan Discharge Clinical Impression: Sexually transmitted disease exposure, Urinary tract infection Patient Disposition: Home, Self-Care Instructions: Chlamydia (ED), Sexually Transmitted Diseases (ED), Safe Sex Practices (ED), Gonorrhea (ED) Additional Instructions: You were found to have a sexually transmitted infection or concern for sexually transmitted infection on your visit today. You were given medications to treat you in the Emergency Department but if you were given antibiotics to take at home it is important you finish all these medications. You are also being treated for a urinary tract infection with antibiotics. Your sexual partners need to be advised they should seek care as well. It is important you abstain from sexual activity while you are on your antibiotics or having active symptoms. We will notify you of any POSITIVE pending results. For further testing including HIV and follow up for your visit you can reach out to your primary care doctor, [facility], or [facility]. As discussed, it is possible that you have other sexually transmitted infections, however, you declined additional testing. You can follow up with any of the options listed below, OR your own QUILL CLEANING MACHINE OPERATOR, or PCP if you change your mind. [facility] [phone] [place] [address] [phone] Prescriptions: New cefuroxime axetil 500 mg tablet 500 mg PO BID Qty: 10 0RF No Action metronidazole [Flagyl] 500 mg tablet 500 mg PO Q12H 7 Days Qty: 14 0RF doxycycline hyclate 100 mg capsule 100 mg PO BID 7 Days Qty: 14 0RF prednisone 20 mg tablet 60 mg PO DAILY Qty: 12 0RF hydroxyzine HCl 25 mg tablet 25 mg PO TID PRN (Reason: itching) Qty: 20 0RF hydrocortisone 2.5 % ointment 1 appl topical TID PRN (Reason: itching) Qty: 28.35 0RF clindamycin HCl 300 mg capsule 600 mg PO Q8H 7 Days Qty: 42 0RF doxycycline hyclate 100 mg capsule 100 mg PO BID Qty: 20 0RF cephalexin 500 mg capsule 500 mg PO QID Qty: 40 0RF cephalexin 500 mg capsule 500 mg PO Q6H 7 Days Qty: 28 0RF doxycycline hyclate 100 mg tablet 100 mg PO BID 7 Days Qty: 14 0RF doxycycline hyclate 100 mg tablet 100 mg PO BID Qty: 20 0RF cephalexin 500 mg capsule 500 mg PO Q6H 10 Days Qty: 40 0RF lidocaine 5 % ointment 1 appl topical BEDTIME Qty: 30 0RF cephalexin 500 mg capsule 500 mg PO QID 10 Days Qty: 40 0RF doxycycline hyclate 100 mg tablet 100 mg PO BID Qty: 20 0RF Print Language: Indonesian
[2025-01-17 12:36] LABS: Appearance Urine Cloudy; Glucose Urine UA Negative (Negative); PH 6.5 (5.0-9.0); Specific Gravity - Urine 1.020 (1.005-1.025); UMIC TRIGGER UACC YES
[2025-01-17 12:39] LABS: UACC Culture Trigger YES; UPreg QC Valid YES
[2025-01-17] MEDS: cefTRIAXone sodium 500 MG, Lidocaine HCl 1 % MPF 1 ML IM (12:47)
[2025-01-17 12:49] VITALS: BP 105/54; PULSE 81; RESP 18; O2SAT 100
[2025-01-17 13:02] VITALS: BP 105/54; PULSE 81; RESP 18; TEMP -17.7; TEMP 0; O2SAT 100
[2025-01-17 14:01] LABS: CT PCR Urine NOT DETECTED (Not Detect.); NG PCR Urine NOT DETECTED (Not Detect.)
--- OUTSIDE RECORDS SUMMARY | 2025-01-17 18:11 | XMS_ITS | Encounter Summary ---
Author Organization [facility] Address [address] [place] [address] Care Team Providers Care Sap Bw Bi Developer Name Role Phone Marya Irby MD Primary Care Provider Reason for Visit * Reason Onset Date Comments PT1 01/08/2025 Encounter Details Date Type Department Care Team (Late st Contact Info) Description 01/08/2025 Telephone Adult Medicine [facility] [address] [place] [id number] Marya Irby MD [address] [place], [place] [id number] Social History Tobacco Use Types Packs/Day Years Used Date Smoking Tobacco: Former Cigarettes 0.5 22.1 S tarted: 12/19/2002 Smokeless Tobacco: Never Alcohol Use Standard Drinks/Week Comments No 0 (1 standard drink = 0.6 oz pur e alcohol) Comments Unknown Sex and Gender Information Value Date Recorded Sex Assigned at Not on file Legal Sex Female 11:06 PM EST Gender Identity Not on file Sexual Orientation Not on file documented as of this encounter Progress Notes * Srinath Germna [place] - 01/08/2025 3:36 PM EST Duplicate? Done on 01/06, additional pickup address a little different is this the reason? * Leticia Torre - 01/08/2025 12:24 PM EST PT-1 Request Call [employer] new provider or submitter number is [id number] Verify and document patients [place] Health insurance ID # (NOT [facility] ID): [id number] Payor[place] / Plan[place] / Product Type: *No Product type* / Patient mailing address: Jackelyn Steele [address] [address] (home) Pt. demographics verified? yes If not accurate, update registration. Is this a NEW request or a RENEWAL? New request Name of treating facility: [facility] Name (first & last) of treating provider? required : [facility] What is the medical reason why the patient is seeing the above provider? [facility] Address/Zip code for treating provider: [address] [place] [address] Phone # for treating provider: [phone] Is the provider in the [employer] network (do they accept [place] Health insurance)? yes What specialtly is this provider? [facility] When is the visit scheduled for? Every day for 1 year Monday through Monday at 9AM How often you will be seeing this particular provider? Everyday for 1 year Do you have friends or family who can transport you to this visit? no If yes, do not complete request. Is there anything stopping you from using public transportation? If yes, explain: yes Is there a medical reason (diagnosis) why you are unable to use public transportation? If yes, explain: Yes,Bipolar Does patient carry self-administered oxygen? no Does patient require door through door or room to room service( ex: member cannot ambulate or wait independently outside their home/facility for transportation. no Is this is for an Adult Day Program or Suboxone clinic Yes,9AM If yes to above what is arrival time 9AM and what is departure time Unknown If yes to above how many days a week? Everyday 5 days a week Do you need a wheelchair van? no If you use a wheelchair what is the height, width & length of the wheelchair? N/a Do you need an escort to accompany you? If yes, explain why. no Will you have an alternative pick-up address? yes [address] [place] [address] Do you have a service animal? no PT DOES NOT NEED RELEASE OF INFORMATION SIGNED documented in this encounter Plan of Treatment Not on file documented as of this encounter Visit Diagnoses Not on filedocumented in this encounter Care Teams Sap Bw Bi Developer Relationship Specialty Start Date End Date Marya Irby MD [address] [place] [id number] PCP - General Internal Medicine 08/18/23 documented as of this encounter
--- OUTSIDE RECORDS SUMMARY | 2025-01-17 18:11 | XMS_ITS ---
Author Name [facility] Organization Unknown Care Team Organization Name Specialty Phone Email Start Date End Da te [facility] JAE PELAEZ Primary Care 05/11/2022 10/23/19 [facility] Alexia Larsen Primary Care 01/11/2022 10/23/19 24
--- OUTSIDE RECORDS SUMMARY | 2025-01-17 18:11 | XMS_ITS | Clinical Summary ---
Author Organization [facility] [address] [facility] Address [address] [place] [address] Phone Care Team Providers Care Collections Analyst Name Role Phone Marya Irby MD Primary Care Provider Allergies Active Allergy Reactions Criticality Noted Date Comments Ziprasidone Hcl Other 09/27/2013 Makes tongue twist around Medications clonazePAM (KlonoPIN) 0.5 mg tablet 4 Active zolpidem (AMBIEN) 5 mg tablet Take 1 tablet (5 mg total) by mouth at bedtime as needed. Max Daily Amount: 5 mg 4 Active OXcarbazepine (TRILEPTAL) 150 mg tablet Take 1 tablet (150 mg total) by mouth 2 (two) times a day. Active selenium sulfide (SELSUN) 2.5 % lotion Apply to lightened skin areas daily for one week. Let sit for 10 minutes before rinsing 4 Active amphetamine-dex troamphetamine (ADDERALL) 30 mg tablet Take 1 tablet (30 mg total) by mouth 2 (two) times a day. Max Daily Amount: 60 mg Active Vraylar 4.5 mg capsule Take 1 capsule (4.5 mg total) by mouth 1 (one) time each day. 5 Active doxycycline (VIBRAMYCIN) 100 mg capsule Take 1 capsule (100 mg total) by mouth 2 (two) times a day for 7 days. Take with at least 8 ounces (large glass) of water, do not lie down for 30 minutes after. Administer 2 hours before or after multivitamins, antacids, or other products containing polyvalent cations (i.e., calcium, iron, magnesium, selenium, zinc). 14 each 5 01/10/20 25 cefixime (SUPRAX) 400 mg capsuleIndicati ons:Gonorrhea Take 2 capsules (800 mg total) by mouth 1 (one) time each day for 1 day. 2 each 5 01/05/20 25 Active Problems Problem Noted Date Diagnosed Date IV drug abuse ([facility] V24, [facility] V28) 020 Overview (02/19/2024): Cocaine, Heroin ADD (attention deficit disorder) 10/22/2014 Bipolar disorder ([facility] V24, [facility] V28) 10/04 Overview (02/19/2024): Arleen Gandara Mild intermittent asthma 10/22/2014 Encounters Date Type Department Care Team Description 01/08/2025 Telephone Adult [address] [phone] Marya Irby MD 01/06/2025 Telephone Adult [address] [phone] Marya Irby MD 01/03/2025 Telephone Adult [address] [phone] Charanjit Hawkins RN 01/02/2025 3:00 PM EDT Office Visit Adult [address] [phone] Roselyn Montana PA Cellulitis of upper extremity, unspecified laterality (Primary Dx); Bipolar affective disorder, current episode mixed, current episode severity unspecified ([facility] V24, [facility] V28); Attention deficit hyperactivity disorder (ADHD), unspecified ADHD type; IV drug abuse ([facility] V24, [facility] V28); Gonorrhea 01/02/2025 Telephone Adult Medicine [address] [phone] Marya Irby MD from Last 3 Months Immunizations Immunization Administration Dates Next Due Tdap Tetanus diptheria acell ular pertussis (Boostrix; Adacel) 7yo and older 10/22/2014 Surgical History Surgery Date Site/Laterality Comments OTHER SURGICAL HISTORY PROCEDURE: DENIES PREVIOUS SURGERY Medical History Medical History Date Comments Asthma DX:Asthma Bipolar disorder ([facility] V2 4, [facility] V28) DX:Bipolar disorder (HCC) Hx of hepatitis C 12/25/2013 DX:Hx of hepat itis C; COMMENT: Viral load negative 12/25/2013. ADD (attention deficit disorder) 10/22/2014 DX:ADD (attention deficit disorder) IV drug abuse ([facility] V24, [facility] V28) 05/29/2019 DX:IV drug abuse (HCC); COMM ENT: Cocaine, Heroin Mild intermittent asthma 10/22/2014 DX:Mild intermittent asthma Nicotine vapor product user 05/29/2019 DX:N icotine vapor product user; COMMENT: Found vaping in her hospital room [facility] 04/19/2019, advised to discontinue, patient left AMA [...] Sign Reading Time Taken Comments Blood Pressure 118/50 01/02/2025 3:25 PM EDT Pulse 90 01/02/2025 3:25 PM EDT Temperature 36.9 C (98.4 F) 01/02/2025 3:25 PM EDT Respiratory Rate - - Oxygen Saturation - - Inhaled Oxygen Concentration - - Weight 63.7 kg (140 lb 6.4 oz) 01/02/2025 3:25 P M EDT Height 162.6 cm (5' 4 ) 01/02/2025 3:25 PM EDT Body Mass Index 24.1 01/02/2025 3:25 PM EDT Plan of Treatment Health Maintenance Due Date Last Done Comments Breast Cancer Screening 1979 Colorectal Cancer Screening: Colonoscopy 1979 Hepatitis A Vaccines (1 of 2 - Risk 2-dose series) 08/30/1998 Hepatitis B Vaccines (1 of 3 - 19+ 3-dose series) 08/30/1998 Pneumococcal Vaccine: Pediat rics (0 to 5 Years) and At-Risk Patients (6 to 49 Years) (1 of 2 - PCV) 08/30/1998 HPV Vaccines (1 - 3-dose SCD M series) 08/30/2006 Cervical Cancer Screening: P ap Smear 02/21/2017 02/21/2014 HIV Screening 05/01/2022 Social Influencers of Health Screening 05/01/2022 Depression Screening 03/06/2024 DTaP,Tdap,and Td Vaccines (2 - Td or Tdap) 10/22/2024 10/22/2014 COVID-19 Vaccine ( - 2024-2 6 season) 2024 Influenza Vaccine (#1) 2024 RSV Immunization Adult Patie nts (1 - 1-dose 75+ series) 08/30/2054 Hepatitis C Screening Completed 12/19/2013 HIB Vaccines [...] patient's age to complete this topic Meningococcal B Vaccine Aged Out No l onger eligible based on patient's age to complete this topic RSV Immunization Patients Un agapito 20 months Aged Out No longer eligible b ased on patient's age to complete this topic Varicella Vaccines Aged Out No longer eligible based on patient's age to complete this topic Procedures Procedure Name Priority Date/Time Associated Diagnosis Comments HM PAP SMEAR Routine 02/21/2014 HEPATITIS C SCREENING Routine 12/19/2013 from Last 3 Months or Most Recently Relevant to Health Maintenance Results * Pap Smear (02/21/2014) Pap smear Abstracted. No Interpretation Historical Provider HEALTH MAINTENANCE Final Result * Hepatitis C Screening (12/19/2013) Hepatitis C Screening Abstracted Historical Provider MD HEALTH MAINTENANCE Final Result from Last 3 Months or Most Recently Relevant to Health Maintenance Insurance [facility] Care Teams Collections Analyst Relationship Specialty Start Date End Date Marya Irby MD [address] [place] [id number] PCP - General Internal Medicine 08/18/23
== END 2025-01-17 13:02 | disposition home or self-care (01) ==
PROVIDERS: Registered Nurse Emergency; Emergency Provider Emergency Medicine
DX: N39.0 Urinary tract infection, site not specified (principal); R30.0 Dysuria; N89.8 Other specified noninflammatory disorders of vagina; Z20.2 Contact with and (suspected) exposure to infections with a predominantly sexual mode of transmission
CPT/HCPCS: 81001; 81025; 87086; 87147; 87491; 87591; 96372; 99284; J0696; J2003